=== PATIENT | male | born 1965 | race Caucasian/White ===

== ENCOUNTER 2017-10-27 19:50 | Emergency (ER) | payer OTHER ==
[2017-10-27] MEDS ORDERED: ALBUTEROL 2.5 MG/3 ML NEB SOL ONE (21:41)
[2017-10-27] MEDS ORDERED: IBUPROFEN 400 MG TAB ONE (21:41)
[2017-10-28 00:02] LABS: Urine Blood 1+ (NEG); Urine Glucose NEGATIVE (NEG); Urine Protein NEGATIVE (NEG)
--- NOTE | 2017-10-28 00:37 | EDPHYS ---
Physician Documentation [facility] Name: Rubén Tan Age: 52 yrs Sex: Male : 1965 Arrival Date: 10/27/2017 Time: 19:53 Bed 23 Private MD: Krishan Nath F ED Physician Norbert Lozano HPI: 10/28 00:00 This 52 yrs old Male presents to ER via Wheelchair with complaints of Fever. pm1 00:00 The patient reports fever, not measured (subjective). Onset: The symptoms/episode pm1 began/occurred today. Associated signs and symptoms: Pertinent negatives: abdominal pain, chest pain, headache, runny nose, sore throat. Severity of symptoms: in the emergency department the symptoms are worse. The patient has been recently seen by a physician: the patient's primary care provider, earlier today, with similar presenting complaints. Patient seen by PCP today and discharged home with a dx of allergies. Patient with fever and bodyaches onset today. Patient has been having a cough for 2 days. Historical: - Allergies: 10/27 20:58 Dilaudid; bb 20:58 Morphine; bb - Home Meds: 20:58 None [Active]; bb - PMHx: 20:58 Migraines; bb - PSHx: 20:58 Knee surgery; shoulder; bb - Immunization history:: Adult Immunizations. - Social history:: Smoking status: Patient uses tobacco products, 1 and one/half a day. ROS: 10/28 00:00 Constitutional: Negative for fever, chills, and weight loss, Eyes: Negative for injury, pm1 pain, redness, and discharge, ENT: Negative for injury, pain, and discharge, Neck: Negative for injury, pain, and swelling, Cardiovascular: Negative for chest pain, palpitations, and edema, Abdomen/GI: Negative for abdominal pain, nausea, vomiting, diarrhea, and constipation, Back: Negative for injury and pain, : Negative for injury, bleeding, discharge, and swelling, MS/Extremity: Negative for injury and deformity. Skin: Negative for injury, rash, and discoloration, Neuro: Negative for headache, weakness, numbness, tingling, and seizure. Respiratory: Positive for cough, Negative for shortness of breath, sputum production, wheezing. Exam: 00:00 Constitutional: This is a well developed, well nourished patient who is awake, alert, pm1 and in no acute distress. Head/Face: Normocephalic, atraumatic. Eyes: Pupils equal round and reactive to light, extra-ocular motions intact. Lids and lashes normal. Conjunctiva and sclera are non-icteric and not injected. Cornea within normal limits. Periorbital areas with no swelling, redness, or edema. ENT: Nares patent. No nasal discharge, no septal abnormalities noted. Tympanic membranes are normal and external auditory canals are clear. Oropharynx with no redness, swelling, or masses, exudates, or evidence of obstruction, uvula midline. Mucous membranes moist. Neck: Trachea midline, no thyromegaly or masses palpated, and no cervical lymphadenopathy. Supple, full range of motion without nuchal rigidity, or vertebral point tenderness. No Meningismus. Chest/axilla: Normal chest wall appearance and motion. Nontender with no deformity. No lesions are appreciated. Cardiovascular: Regular rate and rhythm with a normal S1 and S2. No gallops, murmurs, or rubs. Normal PMI, no JVD. No pulse deficits. 00:00 Abdomen/GI: Soft, non-tender, with normal bowel sounds. No distension or tympany. No guarding or rebound. No evidence of tenderness throughout. Back: No spinal tenderness. No costovertebral tenderness. Full range of motion. Skin: Warm, dry with normal turgor. Normal color with no rashes, no lesions, and no evidence of cellulitis. MS/ Extremity: Pulses equal, no cyanosis. Neurovascular intact. Full, normal range of motion. 00:00 Respiratory: the patient does not display signs of respiratory distress, Respirations: normal, Breath sounds: wheezing: that is mild, is heard diffusely. 00:00 Neuro: Orientation: is normal, Motor: is normal, moves all fours, strength is normal, strength is 5/5 in all extremities, Sensation: is normal, no obvious gross deficits. Vital Signs: 10/27 20:58 BP 123 / 68; Pulse 94; Resp 18; Temp 101.2(O); Pulse Ox 99% on R/A; bb 22:40 BP 100 / 65; Pulse 82; Resp 18; Temp 99.8; Pulse Ox 94% on R/A; rk2 23:28 BP 114 / 72; Pulse 80; Resp 17; Pulse Ox 94% on R/A; rk2 10/28 00:39 BP 130 / 83; Pulse 73; Resp 17; Temp 98.8; Pulse Ox 96% on R/A; rk2 MDM: 10/27 21:16 Patient medically screened. pm1 10/28 00:10 Data reviewed: vital signs. Data interpreted: Pulse oximetry: on room air is 99 %. pm1 Interpretation: normal. Counseling: I had a detailed discussion with the patient and/or guardian regarding: the historical points, exam findings, and any diagnostic results supporting the discharge/admit diagnosis, lab results, radiology results, the need for outpatient follow up, to return to the emergency department if symptoms worsen or persist or if there are any questions or concerns that arise at home. 10/27 21:35 Order name: Flu; Complete Time: 22:31 pm1 10/27 23:58 Order name: Urine Dipstick--Ancillary (enter results); Complete Time: 00:03 rg2 10/27 21:35 Order name: Chest Pa And Lat (2 Views) XRAY; Complete Time: 15:06 pm1 Administered Medications: 10/27 21:48 Drug: Ibuprofen 800 mg Route: PO; rk2 10/28 00:38 Follow up: Response: Temperature is decreased 2 10/27 21:48 Drug: Albuterol 2.5 mg Route: Inhalation; rk2 23:00 Follow up: Response: Temperature is decreased rk2 10/28 00:37 Follow up: Response: No adverse reaction rk2 00:53 Drug: predniSONE 60 mg Route: PO; rk2 01:09 Follow up: Response: No adverse reaction rk2 00:54 Drug: Rocephin (cefTRIAXone) 1 grams Route: IM; Site: right deltoid; rk2 01:09 Follow up: Response: No adverse reaction rk2 Disposition: 02:50 Co-signature as Attending Physician, Norbert Lozano MD. Disposition: 10/28/17 00:37 Discharged to Home. Impression: Bronchitis, not specified as acute or chronic. - Condition is Stable. - Discharge Instructions: Acute Bronchitis, Smoking Cessation, Smoking Cessation, Tips For Success. - Prescriptions for Zithromax Z- Cas 250 mg Oral Tablet - take 1 tablet by ORAL route as directed for 5 days Day 1 - take two (2) tablets one time. Day 2, 3, 4 , 5 take one (1) tablet once daily.; 6 tablet. Medrol (Cas) 4 mg Oral Tablets, Dose Pack - take 1 tablet by ORAL route as directed - follow package instructions; 1 packet. Albuterol Sulfate 90 mcg/actuation - inhale 1-2 puff by INHALATION route every 4-6 hours; 1 Inhaler. - Medication Reconciliation Form, Thank You Letter, Antibiotic Education form. - Work release form (10/28/17 01:16). rk2 - Follow up: Emergency Department; When: As needed; Reason: Worsening of condition. Follow up: Krishan Nath MD; When: 2 - 3 days; Reason: Recheck today's complaints, Continuance of care, Re-evaluation by your physician. - Problem is new. - Symptoms have improved. Signatures: Dispatcher [employer] Alisson Morrow, DANI RN bb Cesar Jerome, ESTHELA PILOT FUEL ENGINEER pm1 Norbert Lozano MD MD Raven Patel RN RN rk2
--- NOTE | 2017-10-28 00:37 | ER ---
Nurse's Notes [facility] Name: Rubén Tan Age: 52 yrs Sex: Male : 1965 Arrival Date: 10/27/2017 Time: 19:53 Bed 23 Private MD: Krishan Nath F Diagnosis: Bronchitis, not specified as acute or chronic Presentation: 10/27 20:55 Presenting complaint: spouse states pt was seen by PCP this morning and told he had bb allergies but pt has gotten worse thru the day running fever, cough, congestion, runny nose, flu-like symptoms. Transition of care: patient was not received from another setting of care. Onset of symptoms was October 24, 2017. Initial Sepsis Screen: Does the patient meet any 2 criteria? Temp <36.0*C (96.8*F)) or > 38.3*C (100.4*F). HR > 90 bpm. Does the patient have a suspected source of infection?. Care prior to arrival: None. 20:55 Method Of Arrival: Wheelchair bb 20:55 Acuity: CARINE 3 bb Historical: - Allergies: 20:58 Dilaudid; bb 20:58 Morphine; bb - Home Meds: 20:58 None [Active]; bb - PMHx: 20:58 Migraines; bb - PSHx: 20:58 Knee surgery; shoulder; bb - Immunization history:: Adult Immunizations. - Social history:: Smoking status: Patient uses tobacco products, 1 and one/half a day. Screenin:30 Abuse screen: Denies threats or abuse. rk2 21:30 Nutritional screening: No deficits noted. Tuberculosis screening: No symptoms or risk rk2 factors identified. Fall Risk None identified. Assessment: 21:30 General: Appears Behavior is calm, cooperative. rk2 21:30 Pain: Complains of pain in general body aches. Neuro: Level of Consciousness is awake, rk2 obeys commands, Oriented to person, place, time, situation. Respiratory: Airway is patent Respiratory effort is even, unlabored, Respiratory pattern is regular, symmetrical. Derm: Skin is dry, Skin is flushed, Skin temperature is hot. 22:48 Reassessment: Pt. sleeping in room \T\ this time... family \T\ bedside. No needs voiced. rk 2 10/28 00:00 Reassessment: Pt. sleeping in room, family \T\ bedside... pt. appears to be in no rk2 distress \T\ this time. No needs voiced. Vital Signs: 10/27 20:58 BP 123 / 68; Pulse 94; Resp 18; Temp 101.2(O); Pulse Ox 99% on R/A; bb 22:40 BP 100 / 65; Pulse 82; Resp 18; Temp 99.8; Pulse Ox 94% on R/A; rk2 23:28 BP 114 / 72; Pulse 80; Resp 17; Pulse Ox 94% on R/A; rk2 10/28 00:39 BP 130 / 83; Pulse 73; Resp 17; Temp 98.8; Pulse Ox 96% on R/A; rk2 ED Course: 10/27 19:53 Patient arrived in ED. am2 19:54 Krishan Nath MD is Private Physician. am2 20:58 Triage completed. bb 20:58 Arm band placed on Patient placed in an exam room, on a stretcher, on pulse oximetry. bb Family accompanied patient. 21:03 Raven Patel, DANI is Primary Nurse. rk2 21:09 Cesar Jerome NP is PHCP. pm1 21:09 Norbert Lozano MD is Attending Physician. pm1 21:30 Patient has correct armband on for positive identification. Bed in low position. Call rk2 light in reach. Adult w/ patient. 21:54 Chest Pa And Lat (2 Views) XRAY Sent. rk2 22:33 Patient moved to radiology via wheelchair. ag1 22:33 X-ray completed. Patient tolerated procedure well. ag1 22:33 Patient moved back from radiology. ag1 22:34 Chest Pa And Lat (2 Views) XRAY In Process Unspecified. EDMS 10/28 00:34 Krishan Nath MD is Referral Physician. pm1 01:09 No provider procedures requiring assistance completed. Patient did not have IV access rk2 during this emergency room visit. Administered Medications: 10/27 21:48 Drug: Ibuprofen 800 mg Route: PO; rk2 10/28 00:38 Follow up: Response: Temperature is decreased rk2 10/27 21:48 Drug: Albuterol 2.5 mg Route: Inhalation; rk2 23:00 Follow up: Response: Temperature is decreased rk2 10/28 00:37 Follow up: Response: No adverse reaction rk2 00:53 Drug: predniSONE 60 mg Route: PO; rk2 01:09 Follow up: Response: No adverse reaction rk2 00:54 Drug: Rocephin (cefTRIAXone) 1 grams Route: IM; Site: right deltoid; rk2 01:09 Follow up: Response: No adverse reaction rk2 Outcome: 00:37 Discharge ordered by MD. pm1 01:09 Discharged to home via wheelchair. rk2 01:09 Condition: improved 01:09 Discharge instructions given to patient. 01:10 Patient left the ED. rk2 Signatures: Dispatcher [employer] EDMS Alisson Doll RN RN bb Gallaway, Ashley ag1 Cesar Jerome NP GLOBAL RECRUITER pm1 Julita Hinson am2 Raven Patel RN RN rk2 Corrections: (The following items were deleted from the chart) 10/27 22:52 22:40 BP 100 / 65; Pulse 82bpm; Resp 18bpm; Pulse Ox 94% RA; rk2 rk2
[2017-10-28] MEDS ORDERED: CEFTRIAXONE 1000 MG/VIAL ONE (00:44)
[2017-10-28] MEDS ORDERED: LIDOCAINE 1% MPF 5 ML VIAL ONE (00:44)
[2017-10-28] MEDS ORDERED: predniSONE 20 MG TAB ONE (00:45)
--- NOTE | 2017-10-28 07:50 | RAD REPORT ---
EXAM DESCRIPTION: Anthony Thurston (2 Views)10/27/2017 10:38 pm CLINICAL HISTORY: Cough COMPARISON: November 2016 FINDINGS: The lungs appear clear of acute infiltrate. The heart is normal size IMPRESSION: No acute abnormalities displayed
== END 2017-10-28 01:10 | disposition home or self-care (01) ==
LOC: ER 19:50
DX: J40 Bronchitis, not specified as acute or chronic (principal); Z72.0 Tobacco use; Z88.5 Allergy status to narcotic agent
CPT/HCPCS: 71046; 81003; 87804; 96372; 99284; J7512

== ENCOUNTER 2017-12-20 19:37 | Emergency (ER) | payer OTHER, SELFPAY ==
[2017-12-20] MEDS ORDERED: ONDANSETRON 4 MG/2 ML VIAL ONE (21:12)
[2017-12-20] MEDS ORDERED: NA CHLORIDE 0.9% 1,000 ML ONE (21:12)
[2017-12-20] MEDS ORDERED: MEPERIDINE HCL 50 MG/ML AMP ONE (21:12)
[2017-12-20] MEDS ORDERED: DIPHENHYDRAMINE 50 MG/ML VIAL ONE (21:23)
[2017-12-20 21:49] LABS: Absolute Lymphocytes (CBC) 2.5 K/uL (0.7-4.9); Absolute Monocytes 0.4 K/uL (0.1-1.3); Absolute Neutrophil 2.4 K/uL (1.8-8.0); Basophils % 1.3 % (0-1.3); Eosinophils % 4.7 % (0-4.4); Hematocrit 43.6 % (39.6-49.0); Lymphocytes % 43.9 % (15.3-44.8); MCH 30.8 pg (27.0-35.0); MCV 91.7 fL (80-100); MPV 8.4 fL (7.6-11.3); Monocytes % 7.5 % (3.3-12.3); RBC Red Blood Cell Count 4.76 M/uL (4.33-5.43)
[2017-12-20 21:53] LABS: Protime INR 0.92
[2017-12-20 21:59] LABS: Bicarbonate 24 mEq/L (21-31); Glucose Level 97 mg/dL (65-120); Lipase 34 U/L (22-51); Potassium 3.5 mEq/L (3.6-5.0); Sodium Level 134 mEq/L (135-145)
[2017-12-20 22:05] LABS: ALT/SGPT 22 IU/L (10-60); AST/SGOT 31 IU/L (10-42); Albumin 3.9 g/dL (3.2-5.5); Alkaline Phosphatase 54 IU/L (42-121); BUN Blood Urea Nitrogen 10 mg/dL (6-20); Bilirubin Direct 0.1 mg/dL (0-0.2); Bilirubin Total 0.3 mg/dL (0.3-1.2); Creatine Phosphokinase 248 IU/L (22-269); Magnesium 1.8 mg/dL (1.8-2.5); Protein, Total 6.4 g/dL (6.0-8.3)
[2017-12-20 22:08] LABS: CKMB Creatine Kinase MB 3.1 ng/ml (0.3-4.0)
[2017-12-20 22:13] LABS: Alcohol Serum/Plasma 101 mg/dl
[2017-12-20 22:47] LABS: Barbiturates NEGATIVE (NEGATIVE); Benzodiazepines NEGATIVE (NEGATIVE); Cocaine NEGATIVE (NEGATIVE); METHAMPHETAM NEGATIVE (NEGATIVE); Opiates NEGATIVE (NEGATIVE); Phencyclidine NEGATIVE (NEGATIVE); THC Cannibis NEGATIVE (NEGATIVE)
--- NOTE | 2017-12-20 23:05 | ER ---
Nurse's Notes [facility] Name: Rubén Tan Age: 52 yrs Sex: Male : 1965 Arrival Date: 12/20/2017 Time: 19:42 Bed 13 Private MD: Diagnosis: Upper back pain. Presentation: 12/20 20:01 Presenting complaint: Patient states: upper back and neck pain. pt with chronic back ak1 pain and degenerative bone disease in his back. Transition of care: patient was not received from another setting of care. Onset of symptoms was December 19, 2017. Risk Assessment: Do you want to hurt yourself or someone else? Patient reports no desire to harm self or others. Initial Sepsis Screen: Does the patient meet any 2 criteria? No. Patient's initial sepsis screen is negative. Does the patient have a suspected source of infection? No. Patient's initial sepsis screen is negative. Care prior to arrival: None. 20:01 Method Of Arrival: Wheelchair ak1 20:01 Acuity: CARINE 4 ak1 Triage Assessment: 20:03 General: Appears uncomfortable, Behavior is calm, cooperative. Pain: Complains of pain ak1 in back, neck. EENT: No signs and/or symptoms were reported regarding the EENT system. Neuro: No deficits noted. Cardiovascular: No deficits noted. Respiratory: No deficits noted. GI: No signs and/or symptoms were reported involving the gastrointestinal system. : No signs and/or symptoms were reported regarding the genitourinary system. Derm: No signs and/or symptoms reported regarding the dermatologic system. Musculoskeletal: Range of motion: limited in neck and back Reports pain in neck and back since yesterday morning.. 20:04 General: Smells of alcohol. ak1 Historical: - Allergies: 20:03 Dilaudid; ak1 20:03 Morphine; ak1 - Home Meds: 20:03 None [Active]; ak1 - PMHx: 20:03 Migraines; chronic back pain; Degenerative disc disease; ak1 - PSHx: 20:03 left shoulder sx; right knee sx; multiple pain injections in upper back; ak1 - Immunization history:: Adult Immunizations unknown. - Social history:: Smoking status: Patient uses tobacco products, smokes two packs cigarettes per day. Patient uses alcohol. - Ebola Screening: : No symptoms or risks identified at this time. Screenin:03 Abuse screen: Denies threats or abuse. Denies injuries from another. Nutritional bs1 screening: No deficits noted. Tuberculosis screening: No symptoms or risk factors identified. Fall Risk None identified. Assessment: 20:50 General: Appears in no apparent distress. uncomfortable, Behavior is cooperative, bs1 anxious. Pain: Complains of pain in upper/lower back, in between shoulder blades. Neuro: Level of Consciousness is awake, alert, obeys commands, Oriented to person, place, time, situation. Cardiovascular: Denies chest pain, shortness of breath, Heart tones S1 S2 present Capillary refill < 3 seconds Patient's skin is warm and dry. Respiratory: Airway is patent Trachea midline Respiratory effort is even, unlabored, Breath sounds are clear bilaterally. GI: No signs and/or symptoms were reported involving the gastrointestinal system. : No signs and/or symptoms were reported regarding the genitourinary system. EENT: No signs and/or symptoms were reported regarding the EENT system. Derm: Skin is intact, Skin is pink, warm \T\ dry. Musculoskeletal: Circulation, motion, and sensation intact. Capillary refill < 3 seconds. 21:18 Reassessment: Patient began having c/o itching to right upper arm and chest, informed bs1 Dr Bhatia, nurse diluted demerol in 10cc NS flush, gave half, approximately 25mg demerol administered. gave verbal order to give 25mg benadryl IV x1. 22:45 Reassessment: Patient appears in no apparent distress at this time. Patient and/or bs1 family updated on plan of care and expected duration. Pain level reassessed. Patient is alert, oriented x 3, equal unlabored respirations, skin warm/dry/pink. itching has subsided on patients right upper arm and chest. 23:15 Reassessment: Patient appears in no apparent distress at this time. No changes from bs1 previously documented assessment. Patient and/or family updated on plan of care and expected duration. Pain level reassessed. Patient is alert, oriented x 3, equal unlabored respirations, skin warm/dry/pink. Patient states symptoms have improved. Vital Signs: 20:03 BP 103 / 70; Pulse 80; Resp 18; Temp 98.1(TE); Pulse Ox 96% on R/A; Weight 90.72 kg ak1 (R); Height 5 ft. 9 in. (175.26 cm) (R); Pain 10/10; 21:06 BP 105 / 73; Pulse 69; Resp 16 S; Pulse Ox 97% on R/A; bs1 22:06 BP 95 / 67; Pulse 74; Resp 16; Pulse Ox 97% on R/A; mt 23:06 BP 114 / 74 LA Sitting (auto/reg); Pulse 76; Resp 16 S; Temp 98(O); Pulse Ox 100% on bs1 R/A; Pain 4/10; 20:03 Body Mass Index 29.53 (90.72 kg, 175.26 cm) ak1 ED Course: 19:42 Patient arrived in ED. al2 20:02 Triage completed. ak1 20:03 Arm band placed on Patient placed in waiting room, Patient notified of wait time. ak1 20:46 Paul Bhatia MD is Attending Physician. pkl 20:50 Dolly Curran, DANI is Primary Nurse. bs1 21:41 X-ray completed. Portable x-ray completed in exam room. Patient tolerated procedure kc2 well. 21:42 XRAY Chest (1 view) In Process Unspecified. EDMS 23:04 Patient has correct armband on for positive identification. Bed in low position. Call bs1 light in reach. Side rails up X 1. gambling monitor on. Pulse ox on. NIBP on. 23:22 No provider procedures requiring assistance completed. IV discontinued, bleeding bs1 controlled, No redness/swelling at site. Pressure dressing applied. Administered Medications: 21:10 Drug: NS 0.9% 1000 ml Route: IV; Rate: 125 ml/hr; Site: right antecubital; bs1 23:26 Follow up: IV Status: Order to discontinue infusion; IV Intake: 250ml bs1 21:10 Drug: Demerol 50 mg Route: IVP; Site: right antecubital; bs1 23:26 Follow up: Response: Adverse reaction, Physician notified bs1 21:10 Drug: Zofran 4 mg Route: IVP; Site: right antecubital; bs1 23:26 Follow up: Response: No adverse reaction bs1 21:22 Drug: Benadryl 25 mg Route: IVP; Site: right antecubital; bs1 23:26 Follow up: Response: No adverse reaction bs1 Intake: 23:26 IV: 250ml; Total: 250ml. bs1 Outcome: 23:05 Discharge ordered by . pklew 23:25 Discharged to home ambulatory. bs1 23:25 Condition: stable 23:25 Discharge instructions given to patient, Instructed on discharge instructions, follow up and referral plans. medication usage, Demonstrated understanding of instructions, follow-up care, medications, Prescriptions given X 2. 23:30 Patient left the ED. bs1 Signatures: Dispatcher [employer] EDMS Paul Bhatia MD MD pkl Krenek, Amber, RN RN ak1 Ericka Doll2 Sara Augustine mt, Brittany RN RN bs1 Susan, Alicja rockwell Corrections: (The following items were deleted from the chart) 23:29 22:45 Reassessment: Patient appears in no apparent distress at this time. Patient bs1 and/or family updated on plan of care and expected duration. Pain level reassessed. Patient is alert, oriented x 3, equal unlabored respirations, skin warm/dry/pink. bs1
--- NOTE | 2017-12-20 23:05 | EDPHYS ---
Physician Documentation [facility] Name: Rubén Tan Age: 52 yrs Sex: Male : 1965 Arrival Date: 12/20/2017 Time: 19:42 Bed 13 Private MD: ED Physician Paul Bhatia HPI: 12/20 21:01 This 52 yrs old Male presents to ER via Wheelchair with complaints of Back pkl Pain. 21:01 The patient presents with pain that is acute. The symptoms are located in the upper pkl back. Onset: The symptoms/episode began/occurred today. The pain radiates to the neck and head. Historical: - Allergies: 20:03 Dilaudid; ak1 20:03 Morphine; ak1 - Home Meds: 20:03 None [Active]; ak1 - PMHx: 20:03 Migraines; chronic back pain; Degenerative disc disease; ak1 - PSHx: 20:03 left shoulder sx; right knee sx; multiple pain injections in upper back; ak1 - Immunization history:: Adult Immunizations unknown. - Social history:: Smoking status: Patient uses tobacco products, smokes two packs cigarettes per day. Patient uses alcohol. - Ebola Screening: : No symptoms or risks identified at this time. ROS: 21:01 Eyes: Negative for injury, pain, redness, and discharge, ENT: Negative for injury, pkl pain, and discharge, Neck: Negative for injury, pain, and swelling, Cardiovascular: Negative for chest pain, palpitations, and edema, Respiratory: Negative for shortness of breath, cough, wheezing, and pleuritic chest pain, Abdomen/GI: Negative for abdominal pain, nausea, vomiting, diarrhea, and constipation. 21:01 Back: Positive for pain at rest, of the upper back. 21:01 : Negative for urinary symptoms. 21:01 MS/extremity: Negative for acute changes. 21:01 Skin: Negative for rash. 21:01 Neuro: Positive for headache. Exam: 21:01 Head/Face: Normocephalic, atraumatic. Eyes: Pupils equal round and reactive to light, pkl extra-ocular motions intact. Lids and lashes normal. Conjunctiva and sclera are non-icteric and not injected. Cornea within normal limits. Periorbital areas with no swelling, redness, or edema. ENT: Nares patent. No nasal discharge, no septal abnormalities noted. Tympanic membranes are normal and external auditory canals are clear. Oropharynx with no redness, swelling, or masses, exudates, or evidence of obstruction, uvula midline. Mucous membranes moist. Neck: Trachea midline, no thyromegaly or masses palpated, and no cervical lymphadenopathy. Supple, full range of motion without nuchal rigidity, or vertebral point tenderness. No Meningismus. Chest/axilla: Normal chest wall appearance and motion. Nontender with no deformity. No lesions are appreciated. Cardiovascular: Regular rate and rhythm with a normal S1 and S2. No gallops, murmurs, or rubs. Normal PMI, no JVD. No pulse deficits. Respiratory: Lungs have equal breath sounds bilaterally, clear to auscultation and percussion. No rales, rhonchi or wheezes noted. No increased work of breathing, no retractions or nasal flaring. Abdomen/GI: Soft, non-tender, with normal bowel sounds. No distension or tympany. No guarding or rebound. No evidence of tenderness throughout. Back: No spinal tenderness. No costovertebral tenderness. Full range of motion. Skin: Warm, dry with normal turgor. Normal color with no rashes, no lesions, and no evidence of cellulitis. MS/ Extremity: Pulses equal, no cyanosis. Neurovascular intact. Full, normal range of motion. Neuro: Awake and alert, GCS 15, oriented to person, place, time, and situation. Cranial nerves II-XII grossly intact. Motor strength 5/5 in all extremities. Sensory grossly intact. Cerebellar exam normal. Normal gait. Vital Signs: 20:03 BP 103 / 70; Pulse 80; Resp 18; Temp 98.1(TE); Pulse Ox 96% on R/A; Weight 90.72 kg ak1 (R); Height 5 ft. 9 in. (175.26 cm) (R); Pain 10/10; 21:06 BP 105 / 73; Pulse 69; Resp 16 S; Pulse Ox 97% on R/A; bs1 22:06 BP 95 / 67; Pulse 74; Resp 16; Pulse Ox 97% on R/A; mt 23:06 BP 114 / 74 LA Sitting (auto/reg); Pulse 76; Resp 16 S; Temp 98(O); Pulse Ox 100% on bs1 R/A; Pain 4/10; 20:03 Body Mass Index 29.53 (90.72 kg, 175.26 cm) ak1 MDM: 20:46 Patient medically screened. pkl 23:04 Data reviewed: vital signs, nurses notes, lab test result(s), EKG, radiologic studies, pkl plain films. 12/20 20:59 Order name: Basic Metabolic Panel; Complete Time: 23:00 pkl 12/20 20:59 Order name: BNP; Complete Time: 23:00 pkl 12/20 20:59 Order name: CBC with Diff; Complete Time: 23:00 pkl 12/20 20:59 Order name: Ckmb; Complete Time: 23:00 pk 12/20 20:59 Order name: CPK; Complete Time: 23:00 pk 12/20 20:59 Order name: LFT's; Complete Time: 23:00 pkl 12/20 20:59 Order name: Magnesium; Complete Time: 23:00 pk 12/20 20:59 Order name: PT-INR; Complete Time: 23:00 pk 12/20 20:59 Order name: Ptt, Activated; Complete Time: 23:00 pkl 12/20 20:59 Order name: Troponin (emerg Dept Use Only); Complete Time: 23:00 pk 12/20 20:59 Order name: D-Dimer; Complete Time: 23:00 pkl 12/20 20:59 Order name: ETOH Level; Complete Time: 23:00 pkl 12/20 20:59 Order name: Lipase; Complete Time: 23:00 pk 12/20 20:59 Order name: UDS pk 12/20 20:59 Order name: XRAY Chest (1 view) pk 12/20 20:59 Order name: EKG; Complete Time: 21:00 pk 12/20 20:59 Order name: Cardiac monitoring; Complete Time: 22:23 pk 12/20 20:59 Order name: EKG - Nurse/Tech; Complete Time: 22:23 pk 12/20 20:59 Order name: IV Saline Lock; Complete Time: 21:52 pkl 12/20 20:59 Order name: Labs collected and sent; Complete Time: 21:52 pk 12/20 20:59 Order name: O2 Per Protocol; Complete Time: 21:52 pk 12/20 20:59 Order name: O2 Sat Monitoring; Complete Time: 21:52 pkl 12/20 20:59 Order name: Urine Dipstick-Ancillary (obtain specimen); Complete Time: 22:23 pk 12/20 22:23 Order name: Urine Dipstick--Ancillary (enter results) ms Administered Medications: 21:10 Drug: NS 0.9% 1000 ml Route: IV; Rate: 125 ml/hr; Site: right antecubital; bs1 23:26 Follow up: IV Status: Order to discontinue infusion; IV Intake: 250ml bs1 21:10 Drug: Demerol 50 mg Route: IVP; Site: right antecubital; bs1 23:26 Follow up: Response: Adverse reaction, Physician notified bs1 21:10 Drug: Zofran 4 mg Route: IVP; Site: right antecubital; bs1 23:26 Follow up: Response: No adverse reaction bs1 21:22 Drug: Benadryl 25 mg Route: IVP; Site: right antecubital; bs1 23:26 Follow up: Response: No adverse reaction bs1 Disposition: 12/20/17 23:05 Discharged to Home. Impression: Upper back pain. . - Condition is Stable. - Prescriptions for Ultram 50 mg Oral Tablet - take 1 tablet by ORAL route every 8 hours As needed; 30 tablet. Cyclobenzaprine 10 mg Oral Tablet - take 1 tablet by ORAL route 2 times per day As needed; 20 tablet. - Medication Reconciliation Form, Thank You Letter, Antibiotic Education, Prescription Opioid Use form. - Follow up: Private Physician; When: 2 - 3 days; Reason: Re-evaluation by your physician. - Problem is new. - Symptoms have improved. Signatures: Dispatcher [employer] EDMS Paul Bhatia MD MD pkDeisi Shannon RN RN ak1 Dolly Curran RN RN bs1 Corrections: (The following items were deleted from the chart) 23:30 23:05 12/20/2017 23:05 Discharged to Home. Impression: Upper back pain. . Condition is bs1 Stable. Forms are Medication Reconciliation Form, Thank You Letter, Antibiotic Education, Prescription Opioid Use. Follow up: Private Physician; When: 2 - 3 days; Reason: Re-evaluation by your physician. Problem is new. Symptoms have improved. pkl
[2017-12-21 00:08] LABS: Urine Blood NEGATIVE (NEG); Urine Glucose NEGATIVE (NEG); Urine Protein NEGATIVE (NEG); Urine Specific Gravity <1.005 (1.005-1.030); Urine pH 5.5 (5.0-7.0)
--- NOTE | 2017-12-21 05:34 | EKG ---
Test Date: 2017-12-20 Test Time: 21:51:14 [employer]: MARGARETH MEASUREMENT RESULTS: Intervals: Rate: 67 MT: 150 QRSD: 110 QT: 426 QTc: 450 [place]: P: 67 MT: 150 QRS: 73 T: 59 INTERPRETIVE STATEMENTS: Normal sinus rhythm Normal ECG Compared to ECG 12/01/2016 07:13:52 No significant changes Electronically Signed On 12-21-17 05:33:08 CDT by Guido Esqueda
--- NOTE | 2017-12-21 08:17 | RAD REPORT ---
EXAM DESCRIPTION: Anthony Single View12/20/2017 9:42 pm CLINICAL HISTORY: Chest pain COMPARISON: October 2017 FINDINGS: The lungs appear clear of acute infiltrate. The heart is normal size. Old rib fractures n oted. IMPRESSION: No acute abnormalities displayed
== END 2017-12-20 23:30 | disposition home or self-care (01) ==
LOC: ER 19:37
DX: M54.6 Pain in thoracic spine (principal); F17.210 Nicotine dependence, cigarettes, uncomplicated; Z88.5 Allergy status to narcotic agent; Z88.6 Allergy status to analgesic agent
CPT/HCPCS: 36415; 71045; 80048; 80076; 80307; 80320; 81003; 82550; 82553; 83690; 83735; 83880; 84484; 85025; 85379; 85610; 85730; 93005; 96361; 96374; 96375; 99284; J2175; J2405; J7030

== ENCOUNTER 2018-11-30 19:22 | Emergency (ER) | payer SELFPAY ==
[2018-11-30 19:55] LABS: Absolute Lymphocytes (CBC) 2.8 K/uL (0.7-4.9); Absolute Monocytes 0.5 K/uL (0.1-1.3); Absolute Neutrophil 2.8 K/uL (1.8-8.0); Basophils % 1.5 % (0-1.3); Eosinophils % 4.2 % (0-4.4); Hematocrit 47.4 % (39.6-49.0); Lymphocytes % 43.1 % (15.3-44.8); MPV 8.7 fL (7.6-11.3); Monocytes % 7.6 % (3.3-12.3); RBC Red Blood Cell Count 5.08 M/uL (4.33-5.43)
[2018-11-30 19:59] LABS: Protime INR 0.91
[2018-11-30 20:18] LABS: ALT/SGPT 34 U/L (12-78); AST/SGOT 31 U/L (15-37); Albumin 3.9 g/dL (3.4-5.0); Alkaline Phosphatase 74 U/L (45-117); BUN Blood Urea Nitrogen 12 mg/dL (7-18); Bicarbonate 23 mmol/L (21-32); Bilirubin Direct < 0.1 mg/dL (0-0.2); Bilirubin Total 0.2 mg/dL (0.2-1.0); Glucose Level 100 mg/dL (74-106); Magnesium 2.1 mg/dL (1.8-2.4); NT PRO-BNP 21 pg/mL (<125); Potassium 4.1 mmol/L (3.5-5.1); Protein, Total 7.1 g/dL (6.4-8.2); Sodium Level 141 mmol/L (136-145); Troponin (Emerg Dept Use Only) < 0.02 ng/mL (0.0-0.045)
--- NOTE | 2018-11-30 20:22 | RAD REPORT ---
EXAM DESCRIPTION: RAD - Chest Single View - 11/30/2018 8:16 pm CLINICAL HISTORY: CHEST PAIN Chest pain. COMPARISON: Chest Single View dated 12/20/2017; Chest Pa And Lat (2 Views) dated 10/27/2017; Chest Sin gle View dated 11/30/2016; Chest Single View dated 10/14/2016 FINDINGS: Portable technique limits examination quality. The lungs are grossly clear. The heart is normal in size. No displaced fractures. IMPRESSION: No acute intrathoracic process suspected.
[2018-11-30] MEDS ORDERED: FENTANYL CITR 100 MCG/2 ML ONE (20:39)
[2018-11-30] MEDS ORDERED: ONDANSETRON 4 MG/2 ML VIAL ONE (20:39)
[2018-11-30] MEDS ORDERED: KETOROLAC 30 MG/ML INJ ONE (20:39)
--- NOTE | 2018-11-30 21:03 | ER ---
Nurse's Notes [facility] Name: Rubén Tan Age: 53 yrs Sex: Male : 1965 Arrival Date: 11/30/2018 Time: 19:23 Bed 28 Private MD: Diagnosis: Chest pain, unspecified;Nonspecific lymphadenitis Presentation: 11/30 19:33 Presenting complaint: Patient states: 2 weeks ago he noticed a lump on the side of his aj1 neck and he started having some chest pain. Yesterday the chest pain was worse and then today it was even worse. Reports left upper chest pain that radiates down the left arm. Reports that he has had a cough in the morning for the past month after having a cold, but he does not feel like this is contributing to his pain. Reports that the pain is worse with movement. Transition of care: patient was not received from another setting of care. Onset of symptoms was November 2018. Risk Assessment: Do you want to hurt yourself or someone else? Patient reports no desire to harm self or others. Initial Sepsis Screen: Does the patient meet any 2 criteria? No. Patient's initial sepsis screen is negative. Does the patient have a suspected source of infection? No. Patient's initial sepsis screen is negative. Care prior to arrival: None. 19:33 Method Of Arrival: Wheelchair aj1 19:33 Acuity: CARINE 3 aj1 Triage Assessment: 19:36 General: Appears uncomfortable, Behavior is anxious, restless. Pain: Complains of pain aj1 in anterior aspect of left upper chest Pain radiates to left arm Pain currently is 10 out of 10 on a pain scale. Neuro: Level of Consciousness is awake, alert, obeys commands. Cardiovascular: Patient's skin is warm and dry. Respiratory: Airway is patent Respiratory effort is even, unlabored, Respiratory pattern is regular, symmetrical. Historical: - Allergies: 19:36 Dilaudid; aj1 19:36 Morphine; aj1 - Home Meds: 19:36 None [Active]; aj1 - PMHx: 19:36 chronic back pain; Degenerative disc disease; Migraines; aj1 - PSHx: 19:36 shoulder surgery; back surgery; aj1 - Immunization history:: Flu vaccine is up to date. - Social history:: Smoking status: Patient uses tobacco products, smokes one pack cigarettes per day. - Ebola Screening: : Patient denies travel to an Ebola-affected area in the 21 days before illness onset. Screenin:41 Abuse screen: Denies threats or abuse. Denies injuries from another. Nutritional mg2 screening: No deficits noted. Tuberculosis screening: No symptoms or risk factors identified. Fall Risk Assessment: 19:42 General: Appears in no apparent distress. comfortable, Behavior is calm, cooperative. mg2 Pain: Complains of pain in chest Pain radiates to left arm. Pain: Pain currently is 4 out of 10 on a pain scale. Quality of pain is described as aching, Pain began gradually, 2 weeks ago but worse yesterday Is intermittent. Neuro: Level of Consciousness is awake, alert, obeys commands, Oriented to person, place, time, situation. Cardiovascular: Capillary refill < 3 seconds Patient's skin is warm and dry. Respiratory: Airway is patent Respiratory effort is even, unlabored, Respiratory pattern is regular, symmetrical. Respiratory: Reports cough that is non-productive. GI: No signs and/or symptoms were reported involving the gastrointestinal system. : No signs and/or symptoms were reported regarding the genitourinary system. EENT: No signs and/or symptoms were reported regarding the EENT system. Derm: Skin is intact, is healthy with good turgor, Skin is pink, warm \T\ dry. normal. Musculoskeletal: Circulation, motion, and sensation intact. Capillary refill < 3 seconds. 21:41 Reassessment: Patient appears in no apparent distress at this time. Patient and/or mg2 family updated on plan of care and expected duration. Pain level reassessed. Patient is alert, oriented x 3, equal unlabored respirations, skin warm/dry/pink. Patient states feeling better. Patient states symptoms have improved. Vital Signs: 19:36 BP 117 / 76; Pulse 83; Resp 18; Pulse Ox 95% on R/A; Weight 95.25 kg (R); Height 5 ft. aj1 9 in. (175.26 cm) (R); Pain 10/10; 20:38 Pulse 75; Resp 18; Temp 98; Pulse Ox 100% on R/A; mg2 21:41 BP 104 / 62; Pulse 72; Resp 18; Temp 98; Pulse Ox 100% on R/A; Pain 2/10; mg2 19:36 Body Mass Index 31.01 (95.25 kg, 175.26 cm) aj1 ED Course: 19:23 Patient arrived in ED. es 19:25 Steven Murphy RN is Primary Nurse. mg2 19:32 Cesar Jerome NP is PHCP. pm1 19:32 Norbert Lozano MD is Attending Physician. pm1 19:35 Triage completed. aj1 19:35 No provider procedures requiring assistance completed. Inserted saline lock: 20 gauge mg2 in left antecubital area, using aseptic technique. Blood collected. 19:36 Arm band placed on Patient Patient triaged in ER bed 28. aj1 19:45 Patient has correct armband on for positive identification. surveillance system monitor on. Pulse mg2 ox on. NIBP on. Door closed. Warm blanket given. 20:16 XRAY Chest (1 view) In Process Unspecified. EDMS 20:37 Patient maintains SpO2 saturation greater than 95% on room air. mg2 21:41 IV discontinued, intact, bleeding controlled, No redness/swelling at site. Pressure mg2 dressing applied. Administered Medications: 20:33 Drug: fentaNYL (PF) 50 mcg Route: IVP; Site: left antecubital; mg2 21:08 Follow up: Response: No adverse reaction; Marked relief of symptoms mg2 20:33 Drug: Zofran 4 mg Route: IVP; Site: left antecubital; mg2 21:08 Follow up: Response: No adverse reaction; Marked relief of symptoms mg2 20:33 Drug: TORadol 30 mg Route: IVP; Site: left antecubital; mg2 21:08 Follow up: Response: No adverse reaction; Marked relief of symptoms mg2 21:07 Drug: Valium 5 mg Route: IVP; Site: left antecubital; mg2 21:41 Follow up: Response: No adverse reaction; Marked relief of symptoms mg2 Outcome: 21:02 Discharge ordered by . pm1 21:42 Discharged to home via wheelchair, with family. mg2 21:42 Condition: stable 21:42 Discharge instructions given to patient, family, Instructed on discharge instructions, follow up and referral plans. medication usage, Demonstrated understanding of instructions, follow-up care, medications, Prescriptions given X 3. 21:42 Patient left the ED. mg2 Signatures: Dispatcher [employer] EDMS Anita Samuel RN RN aj1 Fara Lamb Patrick, NP [employer] pm1 Steven Murphy, RN RN mg2
--- NOTE | 2018-11-30 21:04 | EDPHYS ---
Physician Documentation [facility] Name: Rubén Tan Age: 53 yrs Sex: Male : 1965 Arrival Date: 11/30/2018 Time: 19:23 Bed 28 Private MD: ED Physician Norbert Lozano HPI: 11/30 19:45 This 53 yrs old Male presents to ER via Wheelchair with complaints of Chest pm1 Pain. 20:57 The patient or guardian reports chest pain that is located primarily in the anterior pm1 aspect of left upper chest. 20:57 Onset: 2 week(s) ago. Associated signs and symptoms: Pertinent positives: cough, pm1 Pertinent negatives: diaphoresis, dizziness, headache, nausea, shortness of breath. The chest pain is described as sharp. Duration: The patient or guardian reports multiple episodes, current episode of chest pain present since last night. Modifying factors: the symptoms are aggravated by deep breath, palpation of area, Moving left arm. Severity of pain: in the emergency department the pain is actually worse. The patient has not recently seen a physician. Historical: - Allergies: 19:36 Dilaudid; aj1 19:36 Morphine; aj1 - Home Meds: 19:36 None [Active]; aj1 - PMHx: 19:36 chronic back pain; Degenerative disc disease; Migraines; aj1 - PSHx: 19:36 shoulder surgery; back surgery; aj1 - Immunization history:: Flu vaccine is up to date. - Social history:: Smoking status: Patient uses tobacco products, smokes one pack cigarettes per day. - Ebola Screening: : Patient denies travel to an Ebola-affected area in the 21 days before illness onset. ROS: 20:57 Constitutional: Negative for fever, chills, and weight loss, Eyes: Negative for injury, pm1 pain, redness, and discharge, ENT: Negative for injury, pain, and discharge. 20:57 Respiratory: Negative for shortness of breath, cough, wheezing, and pleuritic chest pain. 20:57 Abdomen/GI: Negative for abdominal pain, nausea, vomiting, diarrhea, and constipation, Back: Negative for injury and pain, : Negative for injury, bleeding, discharge, and swelling, MS/Extremity: Negative for injury and deformity, Skin: Negative for injury, rash, and discoloration, Neuro: Negative for headache, weakness, numbness, tingling, and seizure. 20:57 Neck: Positive for swollen nodes, of the left lateral aspect of neck. 20:57 Cardiovascular: Positive for chest pain, Negative for edema, orthopnea, palpitations. Exam: 20:57 Constitutional: This is a well developed, well nourished patient who is awake, alert, pm1 and in no acute distress. Head/Face: Normocephalic, atraumatic. Eyes: Pupils equal round and reactive to light, extra-ocular motions intact. Lids and lashes normal. Conjunctiva and sclera are non-icteric and not injected. Cornea within normal limits. Periorbital areas with no swelling, redness, or edema. ENT: Nares patent. No nasal discharge, no septal abnormalities noted. Tympanic membranes are normal and external auditory canals are clear. Oropharynx with no redness, swelling, or masses, exudates, or evidence of obstruction, uvula midline. Mucous membranes moist. Cardiovascular: Regular rate and rhythm with a normal S1 and S2. No gallops, murmurs, or rubs. Normal PMI, no JVD. No pulse deficits. Respiratory: Lungs have equal breath sounds bilaterally, clear to auscultation and percussion. No rales, rhonchi or wheezes noted. No increased work of breathing, no retractions or nasal flaring. 20:57 Abdomen/GI: Soft, non-tender, with normal bowel sounds. No distension or tympany. No guarding or rebound. No evidence of tenderness throughout. Back: No spinal tenderness. No costovertebral tenderness. Full range of motion. Skin: Warm, dry with normal turgor. Normal color with no rashes, no lesions, and no evidence of cellulitis. MS/ Extremity: Pulses equal, no cyanosis. Neurovascular intact. Full, normal range of motion. 20:57 Neck: Lymph nodes: lymphadenopathy is appreciated, anterior cervical nodes. 20:57 Chest/axilla: Inspection: normal, Palpation: tenderness, of the anterior aspect of left upper chest, that totally reproduces the patient's complaints. 20:57 Neuro: Orientation: is normal, Motor: is normal, moves all fours, Sensation: is normal, no obvious gross deficits, Gait: is steady, at a normal pace, without difficulty. Vital Signs: 19:36 BP 117 / 76; Pulse 83; Resp 18; Pulse Ox 95% on R/A; Weight 95.25 kg (R); Height 5 ft. aj1 9 in. (175.26 cm) (R); Pain 10/10; 20:38 Pulse 75; Resp 18; Temp 98; Pulse Ox 100% on R/A; mg2 21:41 BP 104 / 62; Pulse 72; Resp 18; Temp 98; Pulse Ox 100% on R/A; Pain 2/10; mg2 19:36 Body Mass Index 31.01 (95.25 kg, 175.26 cm) aj1 MDM: 19:33 Patient medically screened. pm1 20:56 Data reviewed: vital signs. Data interpreted: Pulse oximetry: on room air is 100 %. pm1 Interpretation: normal. Counseling: I had a detailed discussion with the patient and/or guardian regarding: the historical points, exam findings, and any diagnostic results supporting the discharge/admit diagnosis, lab results, radiology results, the need for outpatient follow up, to return to the emergency department if symptoms worsen or persist or if there are any questions or concerns that arise at home. 11/30 19:32 Order name: Basic Metabolic Panel mg2 11/30 19:32 Order name: CBC with Diff mg2 11/30 19:32 Order name: LFT's; Complete Time: 20:19 mg2 11/30 19:32 Order name: Magnesium; Complete Time: 20:19 mg2 11/30 19:32 Order name: NT PRO-BNP; Complete Time: 20:19 mg2 11/30 19:32 Order name: PT-INR; Complete Time: 20:12 mg2 11/30 19:32 Order name: Troponin (emerg Dept Use Only); Complete Time: 20:19 mg2 11/30 19:32 Order name: XRAY Chest (1 view); Complete Time: 20:47 mg2 11/30 19:33 Order name: Basic Metabolic Panel; Complete Time: 20:19 EDMS 11/30 19:33 Order name: CBC with Automated Diff; Complete Time: 20:12 EDMS 11/30 19:45 Order name: Flu; Complete Time: 20:18 mg2 11/30 19:32 Order name: EKG; Complete Time: 19:34 mg2 11/30 19:32 Order name: Cardiac monitoring; Complete Time: 19:40 mg2 11/30 19:32 Order name: EKG - Nurse/Tech; Complete Time: 19:34 mg2 11/30 19:32 Order name: IV Saline Lock; Complete Time: :34 mg2 11/30 19:32 Order name: Labs collected and sent; Complete Time: :34 mg2 11/30 19:32 Order name: O2 Per Protocol; Complete Time: :34 mg2 11/30 19:32 Order name: O2 Sat Monitoring; Complete Time: :34 mg2 EC:11 Rate is 86 beats/min. Rhythm is regular. QRS Snow is Normal. No ST changes noted. pm1 Clinical impression: Normal ECG. Administered Medications: 20:33 Drug: fentaNYL (PF) 50 mcg Route: IVP; Site: left antecubital; mg2 21:08 Follow up: Response: No adverse reaction; Marked relief of symptoms mg2 20:33 Drug: Zofran 4 mg Route: IVP; Site: left antecubital; mg2 21:08 Follow up: Response: No adverse reaction; Marked relief of symptoms mg2 20:33 Drug: TORadol 30 mg Route: IVP; Site: left antecubital; mg2 21:08 Follow up: Response: No adverse reaction; Marked relief of symptoms mg2 21:07 Drug: Valium 5 mg Route: IVP; Site: left antecubital; mg2 21:41 Follow up: Response: No adverse reaction; Marked relief of symptoms mg2 Disposition: 11/30/18 21:02 Discharged to Home. Impression: Chest pain, unspecified, Nonspecific lymphadenitis. - Condition is Stable. - Discharge Instructions: Nonspecific Chest Pain, Lymphadenopathy. - Prescriptions for Cephalexin 500 mg Oral Capsule - take 1 capsule by ORAL route every 6 hours for 10 days; 40 capsule. Naprosyn 500 mg Oral Tablet - take 1 tablet by ORAL route 2 times per day take with food; 30 tablet. Valium 5 mg Oral Tablet - take 1 tablet by ORAL route every 8 hours As needed; 20 tablet. - Medication Reconciliation Form, Thank You Letter, Antibiotic Education, Prescription Opioid Use form. - Follow up: Emergency Department; When: As needed; Reason: Worsening of condition. Follow up: Private Physician; When: 2 - 3 days; Reason: Recheck today's complaints, Continuance of care, Re-evaluation by your physician. - Problem is new. - Symptoms have improved. Addendum: 12/01/2018 21:59 Co-signature as Attending Physician, Norbert Lozano MD. g s Signatures: Dispatcher [employer] EDAnita Moses RN RN aj1 Cesar Jerome, SPINDLE SETTER SPINDLE SETTER pm1 Norbert Lozano MD MD gs Steven Murphy, DANI RN mg2 Corrections: (The following items were deleted from the chart) 11/30 21:42 21:02 11/30/2018 21:02 Discharged to Home. Impression: Chest pain, unspecified; mg2 Nonspecific lymphadenitis. Condition is Stable. Forms are Medication Reconciliation Form, Thank You Letter, Antibiotic Education, Prescription Opioid Use. Follow up: Emergency Department; When: As needed; Reason: Worsening of condition. Follow up: Private Physician; When: 2 - 3 days; Reason: Recheck today's complaints, Continuance of care, Re-evaluation by your physician. Problem is new. Symptoms have improved. pm1
[2018-11-30] MEDS ORDERED: DIAZEPAM 10 MG/2 ML INJ SYRINGE ONE (21:14)
--- NOTE | 2018-12-01 16:33 | EKG ---
Test Date: 2018-11-30 Test Time: 19:30:03 Casing [employer]er: ASTON MEASUREMENT RESULTS: Intervals: Rate: 86 VT: 138 QRSD: 98 QT: 372 QTc: 445 [place]: P: 63 VT: 138 QRS: 69 T: 59 INTERPRETIVE STATEMENTS: Normal sinus rhythm Normal ECG Compared to ECG 12/20/2017 21:51:14 No significant changes Electronically Signed On 12-01-18 16:31:44 CDT by Cam Daniels
== END 2018-11-30 21:42 | disposition home or self-care (01) ==
LOC: ER 19:22
DX: R07.9 Chest pain, unspecified (principal); I88.9 Nonspecific lymphadenitis, unspecified; F17.210 Nicotine dependence, cigarettes, uncomplicated; Z88.6 Allergy status to analgesic agent
CPT/HCPCS: 36415; 71045; 80048; 80076; 83735; 83880; 84484; 85025; 85610; 87804; 93005; 96374; 96375; 99285; J2405; J3010; J3360

== ENCOUNTER 2019-02-21 20:46 | Emergency (ER) | payer SELFPAY ==
[2019-02-21] MEDS ORDERED: KETOROLAC 30 MG/ML INJ ONE (21:37)
[2019-02-21 21:49] LABS: Absolute Lymphocytes (CBC) 2.4 K/uL (0.7-4.9); Basophils % 1.5 % (0-1.3); Hematocrit 44.1 % (39.6-49.0); Lymphocytes % 41.3 % (15.3-44.8); MPV 8.7 fL (7.6-11.3); RBC Red Blood Cell Count 4.78 M/uL (4.33-5.43)
--- NOTE | 2019-02-21 23:14 | ER ---
Nurse's Notes [facility] Name: Rubén Tan Age: 53 yrs Sex: Male : 1965 Arrival Date: 02/21/2019 Time: 20:47 Bed 26 Private MD: Diagnosis: Contusion of abdominal wall Presentation: 02/21 21:07 Presenting complaint: Patient states: "I am having worsening abdominal pain. 2 weeks jd3 ago I hit myself in the stomach with a pipe and it bruised, swelled up, and hurt. the bruise went away, but the swelling is still there along with the pain.". Transition of care: patient was not received from another setting of care. Onset of symptoms was February 09, 2019. Risk Assessment: Do you want to hurt yourself or someone else? Patient reports no desire to harm self or others. Initial Sepsis Screen: Does the patient meet any 2 criteria? No. Patient's initial sepsis screen is negative. Does the patient have a suspected source of infection? No. Patient's initial sepsis screen is negative. Care prior to arrival: None. 21:07 Method Of Arrival: Ambulatory jd3 21:07 Acuity: CARINE 3 jd3 Historical: - Allergies: 21:11 Dilaudid; jd3 21:11 Morphine; jd3 - Home Meds: 21:11 None [Active]; jd3 - PMHx: 21:11 chronic back pain; Degenerative disc disease; Migraines; jd3 - PSHx: 21:11 shoulder surgery; back surgery; right; jd3 - Immunization history:: Adult Immunizations up to date. - Social history:: Smoking status: Patient uses tobacco products, smokes one pack cigarettes per day. - Ebola Screening: : Patient negative for fever greater than or equal to 101.5 degrees Fahrenheit, and additional compatible Ebola Virus Disease symptoms. Screenin:44 Abuse screen: Denies threats or abuse. Denies injuries from another. Nutritional rv screening: No deficits noted. Tuberculosis screening: No symptoms or risk factors identified. Fall Risk None identified. Assessment: 21:42 General: Appears in no apparent distress. uncomfortable, Behavior is calm, cooperative. rv Pain: Complains of pain in abdomen. Neuro: Level of Consciousness is awake, alert, obeys commands, Oriented to person, place, time, situation. Cardiovascular: Patient's skin is warm and dry. Respiratory: Airway is patent. GI: Bowel sounds present X 4 quads. Abd is soft and non tender X 4 quads. : No signs and/or symptoms were reported regarding the genitourinary system. EENT: No signs and/or symptoms were reported regarding the EENT system. Derm: Skin is intact. Musculoskeletal: No signs and/or symptoms reported regarding the musculoskeletal system. Vital Signs: 21:11 BP 145 / 98; Pulse 88; Resp 20 S; Temp 97.1(TE); Pulse Ox 95% on R/A; Weight 99.79 kg jd3 (R); Height 5 ft. 9 in. (175.26 cm) (R); Pain 9/10; 23:36 BP 138 / 94; Pulse 84; Resp 18; Pulse Ox 96% on R/A; rv 21:11 Body Mass Index 32.49 (99.79 kg, 175.26 cm) jd3 ED Course: 20:47 Patient arrived in ED. mr 21:10 Triage completed. jd3 21:11 Arm band placed on. jd3 21:13 Norbert Lozano MD is Attending Physician. gs 21:19 Jose Andujar, DANI is Primary Nurse. rv 21:27 Radiology exam delayed due to lab results not completed at this time. (BUN/Creatinine) vm2 IV insertion attempt and/or patient not having appropriate IV at this time. 21:44 Patient has correct armband on for positive identification. Bed in low position. Call rv light in reach. Side rails up X 1. Pulse ox on. NIBP on. 21:47 Radiology exam delayed due to lab results not completed at this time. (BUN/Creatinine). nj 21:57 Radiology exam delayed due to lab results not completed at this time. (BUN/Creatinine). vm2 22:14 Inserted saline lock: 20 gauge in right antecubital area, using aseptic technique. rv Blood collected. 22:34 CT Abd/Pelvis - IV Contrast Only In Process Unspecified. EDMS 23:39 No provider procedures requiring assistance completed. IV discontinued, intact, rv bleeding controlled, No redness/swelling at site. Pressure dressing applied. Administered Medications: 21:38 Drug: TORadol - Ketorolac 15 mg Route: IVP; Site: right antecubital; rv 23:39 Follow up: Response: Pain is unchanged, physician notified rv Outcome: 23:13 Discharge ordered by MD. gs 23:39 Discharged to home ambulatory, with family. rv 23:39 Condition: unchanged 23:39 Discharge instructions given to patient, Instructed on discharge instructions, follow up and referral plans. Demonstrated understanding of instructions, follow-up care. 23:40 Patient left the ED. rv Signatures: Dispatcher [employer] EDCA Dona Brunner, Magali Lopez 2 Norbert Lozano MD MD gs Davies, Jonathon, RN RN jd3 Jose Andujar RN RN rv
--- NOTE | 2019-02-21 23:14 | EDPHYS ---
Physician Documentation [facility] Name: Rubén Tan Age: 53 yrs Sex: Male : 1965 Arrival Date: 02/21/2019 Time: 20:47 Bed 26 Private MD: ED Physician Norbert Lozano HPI: 02/21 23:10 This 53 yrs old Male presents to ER via Ambulatory with complaints of Back gs Pain. 23:10 The symptoms are located in the , left flank, states ran into pipe 2 weeks ago gs persistent pain left side. Onset: The symptoms/episode began/occurred acutely, 2 week(s) ago, and became persistent. Associated signs and symptoms: Pertinent negatives: chest pain, hematuria. Severity of symptoms: At their worst the symptoms were moderate, in the emergency department the symptoms are unchanged. The patient has experienced a previous episode. Historical: - Allergies: 21:11 Dilaudid; jd3 21:11 Morphine; jd3 - Home Meds: 21:11 None [Active]; jd3 - PMHx: 21:11 chronic back pain; Degenerative disc disease; Migraines; jd3 - PSHx: 21:11 shoulder surgery; back surgery; right; jd3 - Immunization history:: Adult Immunizations up to date. - Social history:: Smoking status: Patient uses tobacco products, smokes one pack cigarettes per day. - Ebola Screening: : Patient negative for fever greater than or equal to 101.5 degrees Fahrenheit, and additional compatible Ebola Virus Disease symptoms. ROS: 23:10 All other systems are negative. gs Exam: 23:10 Head/Face: Normocephalic, atraumatic. Eyes: Pupils equal round and reactive to light, gs extra-ocular motions intact. Lids and lashes normal. Conjunctiva and sclera are non-icteric and not injected. Cornea within normal limits. Periorbital areas with no swelling, redness, or edema. ENT: Nares patent. No nasal discharge, no septal abnormalities noted. Tympanic membranes are normal and external auditory canals are clear. Oropharynx with no redness, swelling, or masses, exudates, or evidence of obstruction, uvula midline. Mucous membranes moist. Neck: Trachea midline, no thyromegaly or masses palpated, and no cervical lymphadenopathy. Supple, full range of motion without nuchal rigidity, or vertebral point tenderness. No Meningismus. Chest/axilla: Normal chest wall appearance and motion. Nontender with no deformity. No lesions are appreciated. Cardiovascular: Regular rate and rhythm with a normal S1 and S2. No gallops, murmurs, or rubs. Normal PMI, no JVD. No pulse deficits. Respiratory: Lungs have equal breath sounds bilaterally, clear to auscultation and percussion. No rales, rhonchi or wheezes noted. No increased work of breathing, no retractions or nasal flaring. Abdomen/GI: Soft, non-tender, with normal bowel sounds. No distension or tympany. No guarding or rebound. No evidence of tenderness throughout. Skin: Warm, dry with normal turgor. Normal color with no rashes, no lesions, and no evidence of cellulitis. MS/ Extremity: Pulses equal, no cyanosis. Neurovascular intact. Full, normal range of motion. Neuro: Awake and alert, GCS 15, oriented to person, place, time, and situation. Cranial nerves II-XII grossly intact. Motor strength 5/5 in all extremities. Sensory grossly intact. Cerebellar exam normal. Normal gait. 23:10 Constitutional: The patient appears alert, awake. 23:10 Back: pain, that is moderate, CVA tenderness, that is moderate, is noted on the left. Vital Signs: 21:11 BP 145 / 98; Pulse 88; Resp 20 S; Temp 97.1(TE); Pulse Ox 95% on R/A; Weight 99.79 kg jd3 (R); Height 5 ft. 9 in. (175.26 cm) (R); Pain 9/10; 23:36 BP 138 / 94; Pulse 84; Resp 18; Pulse Ox 96% on R/A; rv 21:11 Body Mass Index 32.49 (99.79 kg, 175.26 cm) jd3 MDM: 21:23 Patient medically screened. 23:10 Differential diagnosis: chronic back pain, contusion, internal injury. Data reviewed: vital signs, nurses notes, lab test result(s), radiologic studies. Response to treatment: the patient's symptoms have mildly improved after treatment, and as a result, I will discharge patient. 02/21 21:24 Order name: CBC with Diff; Complete Time: 23:10 02/21 21:24 Order name: Basic Metabolic Panel; Complete Time: 23:10 gs 02/21 21:24 Order name: CT Abd/Pelvis - IV Contrast Only gs Administered Medications: 21:38 Drug: TORadol - Ketorolac 15 mg Route: IVP; Site: right antecubital; rv 23:39 Follow up: Response: Pain is unchanged, physician notified rv Disposition: 02/21/19 23:13 Discharged to Home. Impression: Contusion of abdominal wall. - Condition is Stable. - Discharge Instructions: Contusion. - Medication Reconciliation Form, Thank You Letter, Antibiotic Education, Prescription Opioid Use form. - Follow up: Private Physician; When: 2 - 3 days; Reason: Re-evaluation by your physician. Signatures: Dispatcher [employer] EDNorbert Purvis MD MD gs Davies, Jonathon RN RN Jose Boudreaux RN RN rv Corrections: (The following items were deleted from the chart) 23:11 23:10 This 53 yrs old Male presents to ER via Ambulatory with complaints of gs Abdominal Pain, Back Pain, Fever. gs 23:40 23:13 02/21/2019 23:13 Discharged to Home. Impression: Contusion of abdominal wall. rv Condition is Stable. Forms are Medication Reconciliation Form, Thank You Letter, Antibiotic Education, Prescription Opioid Use. Follow up: Private Physician; When: 2 - 3 days; Reason: Re-evaluation by your physician. gs
--- NOTE | 2019-02-22 10:03 | RAD REPORT ---
EXAM DESCRIPTION: CT Abdomen and Pelvis With Contrast: CLINICAL HISTORY: ABD PAIN. Chronic back pain. Trauma. COMPARISON: None. TECHNIQUE: Contiguous axial sections are obtained through the abdomen and pelvis as per protocol aft er administration of iodinated contrast. Oral contrast was not administered. . Sagittal and coronal r eformations were obtained. Automatic exposure control (AEC), mA and/or kV adjustment by patient size, and/or iterative reconst ructive technique was used, per departmental dose optimization program, during the performance of the CT examination. FINDINGS: The nutrition tech view demonstrates no abnormalities . The visualized lung bases demonstrates no abnormalities. The liver is normal in size and demonstrates normal attenuation and enhancement. The spleen, pancre as, adrenal glands appear normal in size and attenuation without any focal abnormalities. The gallbla dder is normal . Kidneys demonstrate no evidence of calculi. Kidneys are normal in size, shape, attenuation and enhanc ement. The aorta, IVC and retroperitoneal structures appear normal . The stomach is distended and fluid-filled. The small bowel loops appear unremarkable. The appendix is normal . The colon is unremarkable. No evidence of free intraperitoneal fluid or air is noted. CT examination of the pelvis demonstrates no evidence of mass or adenopathy. The urinary bladder appe ars normal. The Reproductive organs are unremarkable. Inguinal regions are unremarkable. Facet arthropathy is seen in the lower lumbar spine. IMPRESSION: Normal CT examination of the abdomen and pelvis with contrast. Electronically signed by: Tiana Braun MD 02/21/2019 10:45 PM CDT Due to temporary technical issues with the PACS/Fluency reporting system, reports are being signed by the in house radiologist as a courtesy to ensure prompt reporting. The interpreting radiologist is f ully responsible for the content of the report.
== END 2019-02-21 23:40 | disposition home or self-care (01) ==
LOC: ER 20:46
DX: S30.1XXA Contusion of abdominal wall, initial encounter (principal); Z88.5 Allergy status to narcotic agent; F17.210 Nicotine dependence, cigarettes, uncomplicated
CPT/HCPCS: 36415; 74177; 80048; 85025; 96374; 99284; Q9967

== ENCOUNTER 2019-08-22 09:32 | Emergency (ER) | payer SELFPAY ==
[2019-08-22] MEDS ORDERED: FENTANYL CITR 100 MCG/2 ML ONE (11:31)
[2019-08-22] MEDS ORDERED: KETOROLAC 30 MG/ML INJ ONE (11:31)
[2019-08-22] MEDS ORDERED: ONDANSETRON 4 MG/2 ML VIAL ONE (11:32)
[2019-08-22 11:41] LABS: Urine Blood NEGATIVE (NEG); Urine Glucose NEGATIVE (NEG); Urine Protein NEGATIVE (NEG); Urine pH 6.5 (5.0-7.0)
[2019-08-22 11:50] LABS: Basophils % 1.2 % (0-1.3); Hematocrit 45.9 % (39.6-49.0); Lymphocytes % 33.4 % (15.3-44.8); MPV 8.7 fL (7.6-11.3); RBC Red Blood Cell Count 5.08 M/uL (4.33-5.43)
[2019-08-22 12:05] LABS: Protime INR 0.9
[2019-08-22 12:07] LABS: ALT/SGPT 41 U/L (12-78); AST/SGOT 23 U/L (15-37); Albumin 3.6 g/dL (3.4-5.0); Alkaline Phosphatase 83 U/L (45-117); BUN Blood Urea Nitrogen 15 mg/dL (7-18); Bicarbonate 29 mmol/L (21-32); Bilirubin Direct < 0.1 mg/dL (0-0.2); Bilirubin Total 0.4 mg/dL (0.2-1.0); Glucose Level 98 mg/dL (74-106); Lipase 91 U/L (73-393); Magnesium 2.3 mg/dL (1.8-2.4); NT PRO-BNP 29 pg/mL (<125); Potassium 4.6 mmol/L (3.5-5.1); Protein, Total 7.1 g/dL (6.4-8.2); Sodium Level 140 mmol/L (136-145); Troponin (Emerg Dept Use Only) < 0.02 ng/mL (0.0-0.045)
--- NOTE | 2019-08-22 12:08 | RAD REPORT ---
EXAM DESCRIPTION: RAD - Chest Single View - 08/22/2019 11:48 am CLINICAL HISTORY: COUGH Chest pain. COMPARISON: Chest Single View dated 11/30/2018; Chest Single View dated 12/20/2017; Chest Pa And Lat ( 2 Views) dated 10/27/2017; Chest Single View dated 11/30/2016; Abdomen Pelvis W Contrast dated 019 FINDINGS: Portable technique limits examination quality. The lungs are grossly clear. The heart is normal in size. No displaced fractures. IMPRESSION: No acute intrathoracic process suspected.
--- NOTE | 2019-08-22 12:27 | EKG ---
Test Date: 2019-08-22 Test Time: 11:28:26 Ticketing Clerk: NAN MEASUREMENT RESULTS: Intervals: Rate: 66 RI: 156 QRSD: 106 QT: 410 QTc: 429 [place]: P: 66 RI: 156 QRS: 68 T: 61 INTERPRETIVE STATEMENTS: Normal sinus rhythm Normal ECG Compared to ECG 11/30/2018 19:30:03 No significant changes Electronically Signed On 08-22-19 12:27:04 INDUSTRIAL LOCOMOTIVE OPERATOR by Cam Daniels
--- NOTE | 2019-08-22 12:39 | RAD REPORT ---
EXAM DESCRIPTION: CT - Angio Aorta For Dissection - 08/22/2019 12:28 pm CLINICAL HISTORY: Chest pain radiating to the back. CHEST PAIN COMPARISON: No comparisons TECHNIQUE: CT angiography of the aorta was performed with MIPs. All CT scans are performed using dose optimization technique as appropriate and may include automated exposure control or mA/KV adjustment according to patient size. FINDINGS: A left aortic arch is present with normal branching pattern of the great vessels.No acute aortic finding is seen such as aneurysm, penetrating ulcer or dissection. The celiac axis, SMA, KATALINA and renal arteries are patent. No evidence of pulmonary embolism. Mild diffuse COPD is present. The liver demonstrates no focal mass or biliary dilatation.The spleen, pancreas, adrenal glands and k idneys are within normal limits for arterial phase imaging. No bowel obstruction, free fluid or abscess.Colonic diverticulosis without diverticulitis.No patholog ic enlarged lymphadenopathy identified. No fracture or worrisome bone lesion seen. IMPRESSION: No acute aortic finding is demonstrated. Mild COPD.
--- NOTE | 2019-08-22 13:21 | ER ---
Nurse's Notes [facility] Name: Rubén Tan Age: 54 yrs Sex: Male : 1965 Arrival Date: 08/22/2019 Time: 09:33 Bed 5 Private MD: Diagnosis: Strain of muscle and tendon of back wall of thorax;Strain of muscle and tendon of front wall of thorax;Tobacco abuse counseling;Tobacco use Presentation: 08/22 10:06 Presenting complaint: Patient states: L lateral chest wall pain that radiates towards ss LUQ x 1.5 months. Pt states, "I thought I just pulled a muscle, but it hasn't gone away.". Transition of care: patient was not received from another setting of care. Onset of symptoms is unknown. Risk Assessment: Do you want to hurt yourself or someone else? Patient reports no desire to harm self or others. Initial Sepsis Screen: Does the patient meet any 2 criteria? No. Patient's initial sepsis screen is negative. Does the patient have a suspected source of infection? No. Patient's initial sepsis screen is negative. Care prior to arrival: None. 10:06 Method Of Arrival: Ambulatory ss 10:06 Acuity: CARINE 3 ss Historical: - Allergies: 10:07 Dilaudid; ss 10:07 Morphine; ss - PMHx: 10:07 chronic back pain; Degenerative disc disease; Migraines; ss - PSHx: 10:07 shoulder surgery; back surgery; right; ss - Immunization history:: Adult Immunizations up to date. - Coronavirus screen:: The patient has NOT traveled to [place], [place], or [place] in the past 14 days. Proceed with normal triage process as indicated. - Social history:: Smoking status: Patient reports the use of cigarette tobacco products, smokes one pack cigarettes per day. - Ebola Screening: : Patient denies exposure to infectious person Patient denies travel to an Ebola-affected area in the 21 days before illness onset. Screenin:00 Abuse screen: Denies threats or abuse. Denies injuries from another. Nutritional sg screening: No deficits noted. Tuberculosis screening: No symptoms or risk factors identified. Never had TB. Fall Risk None identified. Assessment: 11:00 General: Appears in no apparent distress. well groomed, well developed, well nourished, sg Behavior is calm, cooperative, appropriate for age. Pain: Complains of pain in posterior aspect of left lateral abdomen and anterior aspect of left lateral abdomen and mid back area Quality of pain is described as aching. Neuro: Level of Consciousness is awake, alert, obeys commands, Oriented to person, place, time. Cardiovascular: Patient's skin is warm and dry. Chest pain is denied. Respiratory: Airway is patent Respiratory effort is even, unlabored, Respiratory pattern is regular, symmetrical. GI: Abdomen is round non-distended, Bowel sounds present X 4 quads. Reports tolerance of fluids, tolerance of food. : Reports pain in left flank(s). EENT: No signs and/or symptoms were reported regarding the EENT system. Derm: Skin is pink, warm \\T\\ dry. Musculoskeletal: Circulation, motion, and sensation intact. Range of motion: intact in all extremities. 13:10 Reassessment: Patient appears in no apparent distress at this time. Patient and/or sg family updated on plan of care and expected duration. Pain level reassessed. Patient is alert, oriented x 3, equal unlabored respirations, skin warm/dry/pink. at bedside updating on pt resorts and plans to dc pt to home. Vital Signs: 10:07 BP 124 / 84; Pulse 70; Resp 16; Temp 97.6; Pulse Ox 98% on R/A; Weight 99.79 kg; Height ss 5 ft. 9 in. (175.26 cm); Pain 8/10; 13:30 BP 122 / 70; Pulse 72; Resp 17; Pulse Ox 100% on R/A; sg 10:07 Body Mass Index 32.49 (99.79 kg, 175.26 cm) ED Course: 09:33 Patient arrived in ED. rg4 10:04 Ronnie Reinoso MD is Attending Physician. ps1 10:06 Triage completed. ss 10:07 Arm band placed on right wrist. ss 10:59 Taqueria Louis, DANI is Primary Nurse. sg 11:12 Uvaldo Clemons MD is Attending Physician. [facility] 11:40 Urine Dipstick--Ancillary (enter results) Sent. 5 11:40 Urine Culture Sent. 5 11:40 Lipase Sent. 5 11:40 Basic Metabolic Panel Sent. 5 11:40 CBC with Diff Sent. 5 11:40 LFT's Sent. mh5 11:40 Magnesium Sent. [facility] 11:41 Patient has correct armband on for positive identification. Bed in low position. Call [facility] light in reach. Side rails up X2. conveyor monitor on. Pulse ox on. NIBP on. 11:41 NT PRO-BNP Sent. 5 11:41 PT-INR Sent. [facility] 11:41 Troponin (emerg Dept Use Only) Sent. [facility] 11:42 Initial lab(s) drawn, by il, sent to lab. Inserted saline lock: 20 gauge in left [facility] antecubital area, using aseptic technique. Blood collected. 12:34 Patient moved back from [place]. sg 13:30 No provider procedures requiring assistance completed. IV discontinued, intact, sg bleeding controlled, No redness/swelling at site. Pressure dressing applied. 13:35 Roberto Carlos Khan MD is Referral Physician. [facility] Administered Medications: 11:37 Drug: TORadol 30 mg Route: IVP; Site: left antecubital; sg 12:30 Follow up: Response: No adverse reaction; Pain is decreased sg 11:38 Drug: Zofran 4 mg Route: IVP; Site: left antecubital; sg 12:00 Follow up: Response: No adverse reaction; Nausea is decreased sg 11:40 Drug: fentaNYL (PF) 25 mcg Route: IVP; Site: left antecubital; sg 12:35 Follow up: Response: No adverse reaction; Pain is unchanged, physician notified; RASS: sg Restless (+1) 12:35 Drug: fentaNYL (PF) 25 mcg {Note: RASS of +1.} Route: IVP; Site: left antecubital; sg Outcome: 13:18 Discharge ordered by . [facility] 13:30 Discharged to home ambulatory. sg 13:30 Condition: good 13:30 Discharge instructions given to patient, Instructed on discharge instructions, follow up and referral plans. no drinking with medication, no driving heavy equipment, medication usage, benefits of quitting smoking, safety practices, Demonstrated understanding of instructions, follow-up care, medications, Prescriptions given X 4. 13:32 Patient left the ED. 13:37 Patient left the ED. Signatures: Taqueria Louis RN RN sg Anderson, Corey, MD MD cha Smirch, Shelby, RN RN Juanita Walsh 4 Rhea Hayes 5 Reinoso, Ronnie, MD MD ps1
--- NOTE | 2019-08-22 13:22 | EDPHYS ---
Physician Documentation [facility] Name: Rubén Tan Age: 54 yrs Sex: Male : 1965 Arrival Date: 08/22/2019 Time: 09:33 Bed 5 Private MD: ED Physician Uvaldo Clemons HPI: 08/22 11:18 This 54 yrs old Male presents to ER via Ambulatory with complaints of Flank estee Pain. 11:18 The patient complains of pain in the left scapular area, left subscapular area and mid estee back area. The pain does not radiate. Onset: The symptoms/episode began/occurred 1 month(s) ago. Modifying factors: The symptoms are alleviated by nothing. the symptoms are aggravated by movement. Associated signs and symptoms: The patient has no apparent associated signs or symptoms. Severity of pain: At its worst the pain was moderate in the emergency department the pain is unchanged. The patient has not experienced similar symptoms in the past. Historical: - Allergies: 10:07 Dilaudid; ss 10:07 Morphine; ss - PMHx: 10:07 chronic back pain; Degenerative disc disease; Migraines; ss - PSHx: 10:07 shoulder surgery; back surgery; right; ss - Immunization history:: Adult Immunizations up to date. - Coronavirus screen:: The patient has NOT traveled to [place], [place], or [place] in the past 14 days. Proceed with normal triage process as indicated. - Social history:: Smoking status: Patient reports the use of cigarette tobacco products, smokes one pack cigarettes per day. - Ebola Screening: : Patient denies exposure to infectious person Patient denies travel to an Ebola-affected area in the 21 days before illness onset. ROS: 11:19 Constitutional: Negative for fever, chills, and weight loss, Eyes: Negative for injury, estee pain, redness, and discharge, ENT: Negative for injury, pain, and discharge, Neck: Negative for injury, pain, and swelling, Respiratory: Negative for shortness of breath, cough, wheezing, and pleuritic chest pain, Back: Negative for injury and pain, : Negative for injury, bleeding, discharge, and swelling, MS/Extremity: Negative for injury and deformity, Skin: Negative for injury, rash, and discoloration, Neuro: Negative for headache, weakness, numbness, tingling, and seizure, Psych: Negative for depression, anxiety, suicide ideation, homicidal ideation, and hallucinations, Allergy/Immunology: Negative for hives, rash, and allergies, Endocrine: Negative for neck swelling, polydipsia, polyuria, polyphagia, and marked weight changes, Hematologic/Lymphatic: Negative for swollen nodes, abnormal bleeding, and unusual bruising. 11:19 Cardiovascular: Positive for chest pain. 11:19 Abdomen/GI: Positive for abdominal pain, of the anterior aspect of left lateral abdomen and posterior aspect of left lateral abdomen. Exam: 11:19 Constitutional: This is a well developed, well nourished patient who is awake, alert, estee and in no acute distress. Head/Face: Normocephalic, atraumatic. Eyes: Pupils equal round and reactive to light, extra-ocular motions intact. Lids and lashes normal. Conjunctiva and sclera are non-icteric and not injected. Cornea within normal limits. Periorbital areas with no swelling, redness, or edema. ENT: Nares patent. No nasal discharge, no septal abnormalities noted. Tympanic membranes are normal and external auditory canals are clear. Oropharynx with no redness, swelling, or masses, exudates, or evidence of obstruction, uvula midline. Mucous membranes moist. Neck: Trachea midline, no thyromegaly or masses palpated, and no cervical lymphadenopathy. Supple, full range of motion without nuchal rigidity, or vertebral point tenderness. No Meningismus. Cardiovascular: Regular rate and rhythm with a normal S1 and S2. No gallops, murmurs, or rubs. Normal PMI, no JVD. No pulse deficits. Respiratory: Lungs have equal breath sounds bilaterally, clear to auscultation and percussion. No rales, rhonchi or wheezes noted. No increased work of breathing, no retractions or nasal flaring. Abdomen/GI: Soft, non-tender, with normal bowel sounds. No distension or tympany. No guarding or rebound. No evidence of tenderness throughout. Back: No spinal tenderness. No costovertebral tenderness. Full range of motion. Male : Normal genitalia with no discharge or lesions. Skin: Warm, dry with normal turgor. Normal color with no rashes, no lesions, and no evidence of cellulitis. MS/ Extremity: Pulses equal, no cyanosis. Neurovascular intact. Full, normal range of motion. Neuro: Awake and alert, GCS 15, oriented to person, place, time, and situation. Cranial nerves II-XII grossly intact. Motor strength 5/5 in all extremities. Sensory grossly intact. Cerebellar exam normal. Normal gait. Psych: Awake, alert, with orientation to person, place and time. Behavior, mood, and affect are within normal limits. 11:19 Chest/axilla: Inspection: normal, Palpation: tenderness, that is mild, that is moderate, of the left lateral anterior chest and left lateral posterior chest, Axilla: are normal, no abscess, no cellulitis, no mass, no palpable nodes, no rash, lymphadenopathy, is not appreciated, Lymph nodes: lymphadenopathy is not appreciated. Vital Signs: 10:07 BP 124 / 84; Pulse 70; Resp 16; Temp 97.6; Pulse Ox 98% on R/A; Weight 99.79 kg; Height ss 5 ft. 9 in. (175.26 cm); Pain 8/10; 13:30 BP 122 / 70; Pulse 72; Resp 17; Pulse Ox 100% on R/A; sg 10:07 Body Mass Index 32.49 (99.79 kg, 175.26 cm) ss MDM: 11:12 Patient medically screened. [facility] 13:11 Data reviewed: vital signs, nurses notes, lab test result(s), EKG, radiologic studies, [facility] CT scan, plain films. 08/22 11:18 Order name: Basic Metabolic Panel [facility] 08/22 11:18 Order name: CBC with Diff [facility] 08/22 11:18 Order name: LFT's [facility] 08/22 11:18 Order name: Magnesium [facility] 08/22 11:18 Order name: NT PRO-BNP [facility] 08/22 11:18 Order name: PT-INR [facility] 08/22 11:18 Order name: Troponin (emerg Dept Use Only) [facility] 08/22 11:18 Order name: Lipase [facility] 08/22 11:18 Order name: Urine Culture [facility] 08/22 11:29 Order name: Urine Dipstick--Ancillary (enter results) 08/22 11:42 Order name: Urine Dipstick-Ancillary; Complete Time: 12:23 [facility] 08/22 11:52 Order name: CBC with Automated Diff; Complete Time: 12:23 [facility] 08/22 12:06 Order name: Protime (+INR); Complete Time: 12:23 [facility] 08/22 12:08 Order name: Basic Metabolic Panel; Complete Time: 12:23 [facility] 08/22 11:18 Order name: XRAY Chest (1 view) [facility] 08/22 11:18 Order name: EKG; Complete Time: 11:[address] [facility] 08/22 11:18 Order name: Cardiac monitoring; Complete Time: 11:[address] [facility] 08/22 11:18 Order name: EKG - Nurse/Tech; Complete Time: 13:[address] [facility] 08/22 11:18 Order name: CT Aorta for Dissection [facility] 08/22 12:08 Order name: Liver (Hepatic) Function; Complete Time: 12:23 [facility] 08/22 12:08 Order name: Troponin (Emerg Dept Use Only); Complete Time: 12:23 [facility] 08/22 12:08 Order name: NT PRO-BNP; Complete Time: 12:23 [facility] 08/22 12:08 Order name: Magnesium; Complete Time: 12:23 [facility] 08/22 12:08 Order name: Lipase; Complete Time: 12:23 [facility] 08/22 12:09 Order name: RAD; Complete Time: 12:23 [facility] 08/22 12:48 Order name: CT; Complete Time: 13:10 [facility] 08/22 11:18 Order name: IV Saline Lock; Complete Time: 11:[address] [facility] 08/22 11:18 Order name: Labs collected and sent; Complete Time: 11:[address] [facility] 08/22 11:18 Order name: O2 Per Protocol; Complete Time: 13:[address] [facility] 08/22 11:18 Order name: O2 Sat Monitoring; Complete Time: 13:[address] [facility] 08/22 11:18 Order name: Urine Dipstick-Ancillary (obtain specimen); Complete Time: 11:[address] [facility] Administered Medications: 11:37 Drug: TORadol 30 mg Route: IVP; Site: left antecubital; sg 12:30 Follow up: Response: No adverse reaction; Pain is decreased sg 11:38 Drug: Zofran 4 mg Route: IVP; Site: left antecubital; sg 12:00 Follow up: Response: No adverse reaction; Nausea is decreased sg 11:40 Drug: fentaNYL (PF) 25 mcg Route: IVP; Site: left antecubital; sg 12:35 Follow up: Response: No adverse reaction; Pain is unchanged, physician notified; RASS: sg Restless (+1) 12:35 Drug: fentaNYL (PF) 25 mcg {Note: RASS of +1.} Route: IVP; Site: left antecubital; sg Disposition: 08/22/19 13:18 Discharged to Home. Impression: Strain of muscle and tendon of back wall of thorax, Strain of muscle and tendon of front wall of thorax, Tobacco abuse counseling, Tobacco use. - Condition is Stable. - Discharge Instructions: Back Pain, Adult, Steps to Quit Smoking, Smoking Hazards, Back Pain, Adult, [id number]. - Prescriptions for Ibuprofen 600 mg Oral Tablet - take 1 tablet by ORAL route every 6 hours As needed take with food; 30 tablet. Cyclobenzaprine 5 mg Oral Tablet - take 1 tablet by ORAL route 3 times per day As needed; 15 tablet. Tramadol 50 mg Oral Tablet - take 2 tablet by ORAL route every 8 hours as needed; 30 tablet. - Work release form, Medication Reconciliation Form, Thank You Letter, Antibiotic Education, Prescription Opioid Use form. - Follow up: Private Physician; When: 2 - 3 days; Reason: Recheck today's complaints, Continuance of care, Re-evaluation by your physician. Follow up: Roberto Carlos Khan MD; When: 2 - 3 days; Reason: Recheck today's complaints, Re-evaluation by your physician. - Problem is new. - Symptoms have improved. Signatures: Dispatcher [employer] EDTaqueria Pitts RN RN Uvaldo Lake MD MD cha Smirch, Shelby, RN RN ss Corrections: (The following items were deleted from the chart) 13:32 13:18 08/22/2019 13:18 Discharged to Home. Impression: Strain of muscle and tendon of ss back wall of thorax; Strain of muscle and tendon of front wall of thorax. Condition is Stable. Forms are Medication Reconciliation Form, Thank You Letter, Antibiotic Education, Prescription Opioid Use. Follow up: Private Physician; When: 2 - 3 days; Reason: Recheck today's complaints, Continuance of care, Re-evaluation by your physician. Problem is new. Symptoms have improved. [facility] 13:35 13:32 08/22/2019 13:18 Discharged to Home. Impression: Strain of muscle and tendon of estee back wall of thorax; Strain of muscle and tendon of front wall of thorax. Condition is Stable. Discharge Instructions: Back Pain, Adult, Back Pain, Adult, [id number]. Prescriptions for Ibuprofen 600 mg Oral Tablet - take 1 tablet by ORAL route every 6 hours As needed take with food; 30 tablet, Tylenol-Codeine #3 300-30 mg Oral Tablet - take 2 tablets by ORAL route every 6 hours As needed; 24 tablet, Cyclobenzaprine 5 mg Oral Tablet - take 1 tablet by ORAL route 3 times per day As needed; 15 tablet. and Forms are Medication Reconciliation Form, Thank You Letter, Antibiotic Education, Prescription Opioid Use, Work release form. Follow up: Private Physician; When: 2 - 3 days; Reason: Recheck today's complaints, Continuance of care, Re-evaluation by your physician. Problem is new. Symptoms have improved. ss 13:35 13:35 08/22/2019 13:18 Discharged to Home. Impression: Strain of muscle and tendon of estee back wall of thorax; Strain of muscle and tendon of front wall of thorax; Tobacco abuse counseling; Tobacco use. Condition is Stable. Discharge Instructions: Back Pain, Adult, Back Pain, Adult, [id number]. Prescriptions for Ibuprofen 600 mg Oral Tablet - take 1 tablet by ORAL route every 6 hours As needed take with food; 30 tablet, Tylenol-Codeine #3 300-30 mg Oral Tablet - take 2 tablets by ORAL route every 6 hours As needed; 24 tablet, Cyclobenzaprine 5 mg Oral Tablet - take 1 tablet by ORAL route 3 times per day As needed; 15 tablet. and Forms are Medication Reconciliation Form, Thank You Letter, Antibiotic Education, Prescription Opioid Use, Work release form. Follow up: Private Physician; When: 2 - 3 days; Reason: Recheck today's complaints, Continuance of care, Re-evaluation by your physician. Problem is new. Symptoms have improved. [facility] 13:37 13:35 08/22/2019 13:18 Discharged to Home. Impression: Strain of muscle and tendon of ss back wall of thorax; Strain of muscle and tendon of front wall of thorax; Tobacco abuse counseling; Tobacco use. Condition is Stable. Discharge Instructions: Back Pain, Adult, Back Pain, Adult, [id number]. Prescriptions for Ibuprofen 600 mg Oral Tablet - take 1 tablet by ORAL route every 6 hours As needed take with food; 30 tablet, Tylenol-Codeine #3 300-30 mg Oral Tablet - take 2 tablets by ORAL route every 6 hours As needed; 24 tablet, Cyclobenzaprine 5 mg Oral Tablet - take 1 tablet by ORAL route 3 times per day As needed; 15 tablet. and Forms are Medication Reconciliation Form, Thank You Letter, Antibiotic Education, Prescription Opioid Use, Work release form. Follow up: Private Physician; When: 2 - 3 days; Reason: Recheck today's complaints, Continuance of care, Re-evaluation by your physician. Follow up: Roberto Carlos Khan; When: 2 - 3 days; Reason: Recheck today's complaints, Re-evaluation by your physician. Problem is new. Symptoms have improved. estee
[2019-08-24 06:21] VITALS: BP 124/84; TEMP 97.6; O2SAT 98
== END 2019-08-22 13:37 | disposition home or self-care (01) ==
LOC: ER 09:32
DX: S29.012A Strain of muscle and tendon of back wall of thorax, initial encounter (principal); S29.011A Strain of muscle and tendon of front wall of thorax, initial encounter; Z71.6 Tobacco abuse counseling; Z72.0 Tobacco use; Z88.5 Allergy status to narcotic agent
CPT/HCPCS: 36415; 71045; 71275; 74175; 80048; 80076; 81003; 83690; 83735; 83880; 84484; 85025; 85610; 87086; 87088; 93005; 96374; 96375; 99285; J2405; J3010; Q9967

== ENCOUNTER 2020-09-16 18:52 | Emergency (ER) | payer SELFPAY ==
[2020-09-17 00:50] LABS: SARS-COV-2 RT PCR NEGATIVE (NEGATIVE)
--- NOTE | 2020-09-17 01:00 | ER ---
Nurse's Notes [facility] Name: Rubén Tan Age: 55 yrs Sex: Male : 1965 Arrival Date: 09/16/2020 Time: 18:55 Bed 16 Private MD: Diagnosis: Acute bronchitis Presentation: 09/16 19:03 Chief complaint: Patient states: Cough, congestion, SOB, wheezing, fever for 3 days. ll1 Coronavirus screen: Client denies travel out of the [place] in the last 14 days. chills, congestion, cough unrelated to allergies, difficulty breathing, fatigue, fever, headache, muscle pain, runny nose, shaking with chills, shortness of breath, Client presents with at least one sign or symptom that may indicate coronavirus-19. Standard/surgical mask placed on the client. Ebola Screen: Patient denies travel to an Ebola-affected area in the 21 days before illness onset. Resp Distress? Mild respiratory distress is noted. Initial Sepsis Screen: Does the patient meet any 2 criteria? No. Patient's initial sepsis screen is negative. Does the patient have a suspected source of infection? Yes: Productive cough/pneumonia. Risk Assessment: Do you want to hurt yourself or someone else? Patient reports no desire to harm self or others. Onset of symptoms was September 12, 2020. 19:03 Method Of Arrival: Wheelchair ll1 19:03 Acuity: CARINE 3 ll1 Historical: - Allergies: 19:06 Dilaudid; ll1 19:06 Morphine; ll1 - PMHx: 19:06 chronic back pain; Degenerative disc disease; Migraines; ll1 - PSHx: 19:06 shoulder surgery; back surgery; right; ll1 - Immunization history:: Flu vaccine is not up to date. - Social history:: Smoking status: Patient reports the use of cigarette tobacco products, smokes one pack cigarettes per day. Screenin:48 Abuse screen: Denies threats or abuse. Nutritional screening: No deficits noted. jb4 Tuberculosis screening: No symptoms or risk factors identified. Fall Risk None identified. Assessment: 21:48 General: Appears in no apparent distress. uncomfortable, Behavior is calm, cooperative, jb4 appropriate for age. Pain: Complains of pain in headache Pain does not radiate. Pain currently is 10 out of 10 on a pain scale. Neuro: Level of Consciousness is awake, alert, obeys commands, Oriented to person, place, time, situation. Cardiovascular: Patient's skin is warm and dry. Respiratory: Airway is patent Respiratory effort is even, unlabored, Respiratory pattern is regular, symmetrical, Breath sounds are clear bilaterally. GI: No signs and/or symptoms were reported involving the gastrointestinal system. : No signs and/or symptoms were reported regarding the genitourinary system. EENT: No signs and/or symptoms were reported regarding the EENT system. Derm: Skin is intact, Skin is pink, warm \T\ dry. Musculoskeletal: Circulation, motion, and sensation intact. Range of motion: intact in all extremities. 22:45 Reassessment: Patient appears in no apparent distress at this time. Patient and/or jb4 family updated on plan of care and expected duration. Pain level reassessed. Patient is alert, oriented x 3, equal unlabored respirations, skin warm/dry/pink. 09/17 00:00 Reassessment: Patient appears in no apparent distress at this time. Patient and/or jb4 family updated on plan of care and expected duration. Pain level reassessed. Patient is alert, oriented x 3, equal unlabored respirations, skin warm/dry/pink. 01:00 Reassessment: Patient appears in no apparent distress at this time. Patient and/or jb4 family updated on plan of care and expected duration. Pain level reassessed. Patient is alert, oriented x 3, equal unlabored respirations, skin warm/dry/pink. Vital Signs: 09/16 19:03 BP 110 / 66; Pulse 86; Resp 18; Temp 97.8; Pulse Ox 98% ; Weight 99.79 kg; Height 5 ft. ll1 9 in. (175.26 cm); Pain 10/10; 22:23 BP 104 / 70; Pulse 66; Resp 16; Pulse Ox 97% on R/A; jb4 09/17 00:00 BP 124 / 82; Pulse 72; Resp 16; Pulse Ox 98% on R/A; jb4 01:00 BP 117 / 82; Pulse 86; Resp 15; Pulse Ox 98% on R/A; jb4 09/16 19:03 Body Mass Index 32.49 (99.79 kg, 175.26 cm) ll1 ED Course: 03/08 18:55 Patient arrived in ED. mr 19:05 Triage completed. ll1 19:06 Arm band placed on. ll1 21:44 Yogesh Hobson, RN is Primary Nurse. jb4 21:45 Tramaine Mayberry PA is PHCP. jr8 21:45 Uvaldo Clemons MD is Attending Physician. jr8 21:48 Patient has correct armband on for positive identification. Bed in low position. Call jb4 light in reach. Side rails up X 1. Pulse ox on. NIBP on. 22:30 XRAY Chest (1 view) In Process Unspecified. [facility]OK 09/17 01:00 No provider procedures requiring assistance completed. Patient did not have IV access jb4 during this emergency room visit. Administered Medications: No medications were administered Outcome: 00:59 Discharge ordered by . jr8 01:30 Discharged to home ambulatory. jb4 01:30 Condition: stable 01:30 Discharge instructions given to patient, Instructed on discharge instructions, follow up and referral plans. medication usage, Demonstrated understanding of instructions, follow-up care, medications, Prescriptions given X 3. 01:36 Patient left the ED. jb4 Signatures: Dispatcher [employer] [facility] Dona Brunner Tramaine Mayberry PA PA jr8 Yogesh Hobson, RN RN jb4 Donya Rangel, DANI RN ll1 Corrections: (The following items were deleted from the chart) 07:37 03/08 22:48 Abuse screen: Denies threats or abuse. jb4 Lonny 09/17 07:37 08 22:48 Nutritional screening: No deficits noted. jb4 [facility] 09/17 07:37 09/16 22:48 Tuberculosis screening: No symptoms or risk factors identified. jb4 4 09/17 07:37 [id number] 22:48 Fall Risk None identified. jb4 jb4
--- NOTE | 2020-09-17 01:00 | EDPHYS ---
Physician Documentation [facility] Name: Rubén Tan Age: 55 yrs Sex: Male : 1965 Arrival Date: 09/16/2020 Time: 18:55 Bed 16 Private MD: ED Physician Uvaldo Clemons HPI: 09/16 23:16 This 55 yrs old Male presents to ER via Wheelchair with complaints of Cough, jr8 Congestion, Breathing Difficulty, Fever. 23:16 The patient or guardian reports cough, that is intermittent, described as mild, with no jr8 sputum, difficulty breathing. Onset: The symptoms/episode began/occurred gradually, 2 day(s) ago. Severity of symptoms: At their worst the symptoms were mild, in the emergency department the symptoms are unchanged. Modifying factors: The symptoms are alleviated by nothing, the symptoms are aggravated by nothing. Associated signs and symptoms: Pertinent positives: fever, headache, sinus congestion. The patient has not experienced similar symptoms in the past. The patient has not recently seen a physician. Historical: - Allergies: 19:06 Dilaudid; ll1 19:06 Morphine; ll1 - PMHx: 19:06 chronic back pain; Degenerative disc disease; Migraines; ll1 - PSHx: 19:06 shoulder surgery; back surgery; right; ll1 - Immunization history:: Flu vaccine is not up to date. - Social history:: Smoking status: Patient reports the use of cigarette tobacco products, smokes one pack cigarettes per day. ROS: 23:16 Eyes: Negative for injury, pain, redness, and discharge, Neck: Negative for injury, jr8 pain, and swelling, Cardiovascular: Negative for chest pain, palpitations, and edema, Abdomen/GI: Negative for abdominal pain. Positive for nausea and diarrhea Back: Negative for injury and pain, MS/Extremity: Negative for injury and deformity, Skin: Negative for injury, rash, and discoloration. 23:16 ENT: Positive for sinus congestion. 23:16 Respiratory: Positive for cough, shortness of breath. Exam: 23:16 Eyes: Pupils equal round and reactive to light, extra-ocular motions intact. Lids and jr8 lashes normal. Conjunctiva and sclera are non-icteric and not injected. Cornea within normal limits. Periorbital areas with no swelling, redness, or edema. ENT: Nares patent. No nasal discharge, no septal abnormalities noted. Tympanic membranes are normal and external auditory canals are clear. Oropharynx with no redness, swelling, or masses, exudates, or evidence of obstruction, uvula midline. Mucous membranes moist. Neck: Trachea midline, no thyromegaly or masses palpated, and no cervical lymphadenopathy. Supple, full range of motion without nuchal rigidity, or vertebral point tenderness. No Meningismus. Cardiovascular: Regular rate and rhythm with a normal S1 and S2. No gallops, murmurs, or rubs. Normal PMI, no JVD. No pulse deficits. Respiratory: Lungs have equal breath sounds bilaterally, clear to auscultation and percussion. No rales, rhonchi or wheezes noted. No increased work of breathing, no retractions or nasal flaring. Abdomen/GI: Soft, non-tender, with normal bowel sounds. No distension or tympany. No guarding or rebound. No evidence of tenderness throughout. Back: No spinal tenderness. No costovertebral tenderness. Full range of motion. Skin: Warm, dry with normal turgor. Normal color with no rashes, no lesions, and no evidence of cellulitis. MS/ Extremity: Pulses equal, no cyanosis. Neurovascular intact. Full, normal range of motion. Neuro: Awake and alert, GCS 15, oriented to person, place, time, and situation. Cranial nerves II-XII grossly intact. Motor strength 5/5 in all extremities. Sensory grossly intact. Cerebellar exam normal. Normal gait. Vital Signs: 19:03 BP 110 / 66; Pulse 86; Resp 18; Temp 97.8; Pulse Ox 98% ; Weight 99.79 kg; Height 5 ft. ll1 9 in. (175.26 cm); Pain 10/10; 22:23 BP 104 / 70; Pulse 66; Resp 16; Pulse Ox 97% on R/A; jb4 09/17 00:00 BP 124 / 82; Pulse 72; Resp 16; Pulse Ox 98% on R/A; jb4 01:00 BP 117 / 82; Pulse 86; Resp 15; Pulse Ox 98% on R/A; jb4 09/16 19:03 Body Mass Index 32.49 (99.79 kg, 175.26 cm) ll1 MDM: 09/16 21:45 Patient medically screened. jr8 09/17 00:58 Data reviewed: vital signs, nurses notes, lab test result(s), radiologic studies, plain jr8 films. Data interpreted: Pulse oximetry: on room air is 97 %. Interpretation: normal. Counseling: I had a detailed discussion with the patient and/or guardian regarding: the historical points, exam findings, and any diagnostic results supporting the discharge/admit diagnosis, lab results, radiology results, the need for outpatient follow up, a family practitioner, to return to the emergency department if symptoms worsen or persist or if there are any questions or concerns that arise at home. 09/16 21:49 Order name: XRAY Chest (1 view) jr8 09/17 00:51 Order name: COVID-19/FLU A+B; Complete Time: 00:58 EDMS Administered Medications: No medications were administered Disposition: 06:46 Co-signature as Attending Physician, Uvaldo Clemons MD I agree with the assessment and estee plan of care. Disposition: 09/17/20 00:59 Discharged to Home. Impression: Acute bronchitis. - Condition is Stable. - Discharge Instructions: Acute Bronchitis, Adult. - Prescriptions for Prednisone 20 mg Oral Tablet - take 1 tablet by ORAL route once daily for 5 days; 5 tablet. Tessalon Perles 100 mg Oral Capsule - take 1 capsule by ORAL route every 8 hours As needed; 15 capsule. Zithromax Z- Cas 250 mg Oral Tablet - take 1 tablet by ORAL route as directed for 5 days Day 1 - take two (2) tablets one time. Day 2, 3, 4 , 5 take one (1) tablet once daily.; 6 tablet. - Medication Reconciliation Form, Thank You Letter, Antibiotic Education, Prescription Opioid Use form. - Follow up: Private Physician; When: 2 - 3 days; Reason: Recheck today's complaints, Continuance of care, Re-evaluation by your physician. - Problem is new. - Symptoms have improved. Signatures: Dispatcher [employer] Uvaldo Tim MD MD cha Roszak, Josh, PA PA jr8 Yogesh Hobson, RN RN jb4 Donya Rangel RN RN ll1 Corrections: (The following items were deleted from the chart) 09/16 23:44 22:01 Influenza Screen (A \T\ B)+BA.LAB.BRZ ordered. [facility] 23:45 22:01 CORONAVIRUS+MR.LAB.BRZ ordered. [facility] EDMS 09/17 01:36 00:59 09/17/2020 00:59 Discharged to Home. Impression: Acute bronchitis. Condition is jb4 Stable. Forms are Medication Reconciliation Form, Thank You Letter, Antibiotic Education, Prescription Opioid Use. Follow up: Private Physician; When: 2 - 3 days; Reason: Recheck today's complaints, Continuance of care, Re-evaluation by your physician. Problem is new. Symptoms have improved. jr8
[2020-09-17 02:10] VITALS: TEMP 97.8
[2020-09-17 02:11] VITALS: BP 104/70; O2SAT 97
--- NOTE | 2020-09-17 07:47 | RAD REPORT ---
EXAM DESCRIPTION: Anthony Single View09/16/2020 10:30 pm CLINICAL HISTORY: Cough COMPARISON: 2019 FINDINGS: The lungs appear clear of acute infiltrate. The heart is normal size IMPRESSION: No acute abnormalities displayed
== END 2020-09-17 01:36 | disposition home or self-care (01) ==
LOC: ER 18:52
DX: J20.9 Acute bronchitis, unspecified (principal); Z20.822 Contact with and (suspected) exposure to COVID-19; F17.210 Nicotine dependence, cigarettes, uncomplicated; Z88.5 Allergy status to narcotic agent; Z88.6 Allergy status to analgesic agent
CPT/HCPCS: 0240U; 71045; 99283

== ENCOUNTER 2023-02-08 09:21 | Emergency (ER) | payer SELFPAY ==
--- OUTSIDE RECORDS SUMMARY | 2023-02-08 09:25 | XMS REPORT | Continuity of Care Document ---
:1965 Author Organization [facility] t Address [address] [facility] [address] [place] [id number] Care Team Providers Name Role Phone No , Pcp Primary Care Physician Unavailable GLORIA FRANKEL Attending Clinician Unavailable MARIO CH Attending Clinician Unavailable VINAY GORDON Attending Clinician Unavailable Tri Mata Attending Clinician CURT PLATT Attending Clinician Unavailable Varghese Jesus Attending Clinician Problems Condition Condition Condition Status Onset Resolution Last Treating Co mments Source Name Details Category Date Date Treatment Clinician Date Closed Closed Disease Active [facility] bimalleola bimalleola 12-04 He alth r fracture r fracture 00:00: of left of left 00 ankle ankle Allergies, Adverse Reactions, Alerts Allergy Allergy Status Severity Reaction(s) Onset Inactive Treating Comm ents Source Name Type Date Date Clinician Sulfa Propensi Active Other Palmar [facility] Antibiot ty to 01-05 and Health ics adverse 00:00: plantar reaction 00 epidermal s ysis Morphine Allergy Active Anaphylac [facility] to 12-08 tic Health substanc 00:00: reaction e 00 Hydromor Allergy Active [facility] phone to 12-08 Health substanc 00:00: e 00 Social History Social Habit Start Date Stop Date Quantity Comments Source History of tobacco Cigarette Smoker [facility] use Alcohol intake 2023-01-05 2023-01-05 Ex-drinker [facility] 00:00:00 00:00:00 (finding) Tobacco use and 2022-12-31 2022-12-31 Smokeless tobacco [facility] exposure 00:00:00 00:00:00 non-user Exposure to 2022-12-082022-12-18 Not sure [facility] SARS-CoV-2 (event) 00:00:00 08:17:00 Sex [birth year] [facility] 00:00:00 00:00:00 Smoking Status Start Date Stop Date Source Tobacco smoking consumption unknown [facility] Occasional tobacco smoker 2022-12-31 00:00:00 [facility] Medications Ordered Filled Start Stop Current Ordering Indication Dosage Frequency Signature Comments Components Source Medication Medication Date Date Medication? Clinician (SIG) Name Name clindamycin 2022- Yes 300mg Q.25D Take 1 U T (Cleocin) 01-05 capsule Health 300 MG 00:00: 04:59 (300 mg capsule 00 :00 total) by mouth in the morning and 1 capsule (300 mg total) at noon and 1 capsule (300 mg total) in the evening and 1 capsule (300 mg total) before bedtime. Do all this for 7 days. gabapentin 2022- Yes [id number] 300mg Q.[id number] Take 1 [facility] (Neurontin) 12-18 303502 [id number] capsule Health 300 MG 00:00: 04:59 3D (300 mg capsule 00 :00 total) by mouth in the morning and 1 capsule (300 mg total) at noon and 1 capsule (300 mg total) in the evening. gabapentin 2022- Yes [id number] 300mg Q.[id number] Take 1 [facility] (Neurontin) 12-18 [id number] capsule Health 300 MG 00:00: 04:59 3D (300 mg capsule 00 :00 total) by mouth in the morning and 1 capsule (300 mg total) at noon and 1 capsule (300 mg total) in the evening. gabapentin 2022- Yes [id number] 300mg Q.[id number] Take 1 [facility] (Neurontin) 12-18 179663 [id number] capsule Health 300 MG 00:00: 04:59 3D (300 mg capsule 00 :00 total) by mouth in the morning and 1 capsule (300 mg total) at noon and 1 capsule (300 mg total) in the evening. sulfamethox 2022- Yes [id number] 1{tbl} Q.5D Take 1 UT azole-trime 5-30 -10 [id number] tablet by Health thoprim 00:00: 04:59 mouth in (Bactrim 00 :00 the DS) 800-160 morning MG tablet and 1 tablet in the evening. Do all this for 10 days. sulfamethox 2022-0 3- Yes [id number] 1{tbl} Q.5D Take 1 UT azole-trime 5-30 - [id number] tablet by Health thoprim 00:00: 04:59 mouth in (Bactrim 00 :00 the DS) 800-160 morning MG tablet and 1 tablet in the evening. Do all this for 10 days. sulfamethox 2022-0 2022- Yes [id number] 1{tbl} Q.5D Take 1 UT azole-trime 5-30 - [id number] tablet by Health thoprim 00:00: 04:59 mouth in (Bactrim 00 :00 the DS) 800-160 morning MG tablet and 1 tablet in the evening. Do all this for 10 days. warfarin 2022-0 Yes 6mg Take 6 mg UT (Coumadin) 5-23 by mouth. Heal th 6 MG tablet 00:00: EVERY DAY 00 AT 5 PM nicotine 2022-0 Yes 1{patch Place 1 UT (Nicoderm 5-23 } patch on Health CQ) 14 00:00: the skin. MG/24HR 00 patch gabapentin 2022-0 Yes 100mg QD Take 100 [facility] (Neurontin) 5-23 mg by Health 100 MG 00:00: mouth 1 capsule 00 (one) time each day. Acetaminoph 2022-0 Yes 500mg Take 500 U T en Extra 5-23 mg by Health Strength 00:00: mouth. 500 MG 00 tablet Lidocaine 2022-0 Yes APPLY 1 [facility] Pain Relief 5-23 PATCH Health 4 % patch 00:00: TOPICALLY 00 TO THE SKIN EVERY 24 HOURS FOR 14 DAYS warfarin 3-0 Yes 6mg Take 6 mg UT (Coumadin) 5-23 by mouth. Heal th 6 MG tablet 00:00: EVERY DAY 00 AT 5 PM nicotine 3-0 Yes 1{patch Place 1 UT (Nicoderm 5-23 } patch on Health CQ) 14 00:00: the skin. MG/24HR 00 patch gabapentin 3-0 Yes 100mg QD Take 100 [facility] (Neurontin) 5-23 mg by Health 100 MG 00:00: mouth 1 capsule 00 (one) time each day. Acetaminoph 3-0 Yes 500mg Take 500 U T en Extra 5-23 mg by Health Strength 00:00: mouth. 500 MG 00 tablet Lidocaine 3-0 Yes APPLY 1 [facility] Pain Relief 5-23 PATCH Health 4 % patch 00:00: TOPICALLY 00 TO THE SKIN EVERY 24 HOURS FOR 14 DAYS warfarin 2023-0 Yes 6mg Take 6 mg UT (Coumadin) 5-23 by mouth. Heal th 6 MG tablet 00:00: EVERY DAY 00 AT 5 PM nicotine 3-0 Yes 1{patch Place 1 UT (Nicoderm 5-23 } patch on Health CQ) 14 00:00: the skin. MG/24HR 00 patch gabapentin 3-0 Yes 100mg QD Take 100 [facility] (Neurontin) 5-23 mg by Health 100 MG 00:00: mouth 1 capsule 00 (one) time each day. Acetaminoph 3-0 Yes 500mg Take 500 U T en Extra 5-23 mg by Health Strength 00:00: mouth. 500 MG 00 tablet Lidocaine 2022-0 Yes APPLY 1 [facility] Pain Relief 5-23 PATCH Health 4 % patch 00:00: TOPICALLY 00 TO THE SKIN EVERY 24 HOURS FOR 14 DAYS warfarin 3-0 Yes 6mg Take 6 mg UT (Coumadin) 5-23 by mouth. Heal th 6 MG tablet 00:00: EVERY DAY 00 AT 5 PM nicotine 3-0 Yes 1{patch Place 1 UT (Nicoderm 5-23 } patch on Health CQ) 14 00:00: the skin. MG/24HR 00 patch gabapentin 3-0 Yes 100mg QD Take 100 [facility] (Neurontin) 5-23 mg by Health 100 MG 00:00: mouth 1 capsule 00 (one) time each day. Acetaminoph 3-0 Yes 500mg Take 500 U T en Extra 5-23 mg by Health Strength 00:00: mouth. 500 MG 00 tablet Lidocaine 3-0 Yes APPLY 1 [facility] Pain Relief 5-23 PATCH Health 4 % patch 00:00: TOPICALLY 00 TO THE SKIN EVERY 24 HOURS FOR 14 DAYS Vital Signs Vital Name Observation Time Observation Value Comments Source Systolic blood pressure 2022-12-31 15:32:00 106 mm[Hg] [facility] Diastolic blood pressure 2022-12-31 15:32:00 76 mm[Hg] [facility] Heart rate 2022-12-31 15:32:00 95 /min [facility] Body temperature 2022-12-31 15:32:00 35.83 Ignacia [facility] Body height 2022-12-31 15:32:00 182.9 cm [facility] weight 2022-12-31 15:32:00 86.183 [facility] BMI 2022-12-31 15:32:00 25.77 kg/m2 [facility] Systolic blood pressure 2022-12-09 13:01:00 113 mm[Hg] [facility] Diastolic blood pressure 2022-12-09 13:01:00 74 mm[Hg] [facility] Heart rate 2022-12-09 13:01:00 89 /min [facility] Body height 2022-12-09 13:01:00 182.9 cm [facility] Body weight 2022-12-09 13:01:00 95.255 [facility] BMI 2022-12-09 13:01:00 28.48 kg/m2 [facility] Procedures This patient has no known procedures. Encounters Start End Encounter Admission Attending Care Care Encounter Source Date/Time Date/Time Type Type Clinicians Facility Department ID 2023-02-05 Outpatient [facility] [id number] [facility] 15:04:48 [id number] [facility] 2023-02-04 Outpatient [facility] [id number] [facility] 14:07:54 [id number] [facility] 2022-12-23 Outpatient [facility] [id number] [facility] 13:17:42 [id number] [facility] 2022-12-22 Outpatient [facility] [id number] UT 15:30:21 [id number] [facility] 2022-12-10 Outpatient [facility] [id number] UT 16:45:32 [id number] [facility] 2022-12-09 Outpatient [facility] [id number] UT 07:29:28 [id number] [facility] 2022-12-08 Outpatient [facility] [id number] UT 08:35:16 [id number] [facility] 2022-12-02 Outpatient [facility] [id number] UT 09:13:30 [id number] [facility] 2022-11-30 Outpatient [facility] [id number] UT 16:06:47 [id number] [facility] 2022-11-23 Outpatient [facility] [id number] UT 09:59:30 [id number] [facility] 2022-11-19 Outpatient [facility] [id number] UT 11:19:12 [id number] [facility] 2022-11-03 Outpatient [facility] [id number] UT 12:18:20 [id number] [facility] 2023-03-03 2023-03-03 Outpatient TERRY [facility] [id number] UT 10:45:00 10:45:00 [facility] 2023-02-09 2023-02-09 Outpatient MARIO CH [facility] [id number] UT 09:15:00 09:15:00 Health 2023-02-09 2023-02-09 Outpatient [facility] [id number] UT 09:15:00 09:15:00 [facility] 2023-01-05 2023-01-05 Outpatient HEIDI [facility] [id number] UT 12:40:00 12:30:28 [facility] 2023-01-05 2023-01-05 Office Nicol, [facility] 6414 [id number] UT 09:15:00 09:22:[address] [id number] Health [id number] 2023-01-05 2023-01-05 Outpatient [facility] [id number] UT 09:15:00 09:22:08 [facility] 2022-12-31 2022-12-31 Office GIULIA [facility] 6400 [id number] UT 11:45:00 11:45:[address] [id number] Health [id number] 2022-12-18 2022-12-18 Office Varghese, [facility] 6414 [id number] UT 09:15:00 09:15:[address] [id number] Health [id number] 2022-12-17 2022-12-17 Outpatient [facility] [id number] UT 11:45:00 11:45:00 Health 2022-12-09 2022-12-09 Office Terry AVIVA 6400 [id number] UT 08:15:00 10:22:[address] [id number] Health [id number] 2022-12-08 2022-12-08 Office Mario Ch [facility] [id number] UT 09:15:00 09:15:[address] [id number] Health [id number] 2022-12-08 2022-12-08 Outpatient [facility] [id number] UT 09:15:00 09:12:10 Health 2022-11-01 2022-11-01 Outpatient MARIO CH [facility] [id number] UT 10:00:00 10:00:00 Health Results This patient has no known results.
[2023-02-08] MEDS ORDERED: dexAMETHasone 10 MG/ML VIAL ONE (09:52)
[2023-02-08] MEDS ORDERED: CYCLOBENZAPRINE 10 MG TAB ONE (09:52)
--- NOTE | 2023-02-08 10:11 | RAD REPORT ---
EXAM DESCRIPTION: RAD - Shoulder Right 2 View - 02/08/2023 10:04 am CLINICAL HISTORY: Right shoulder pain FINDINGS: No fracture or dislocation is seen. Mild chronic widening AC joint 18 millimeter exostosis extends off of the mid to distal right clavicle inferiorly.
--- NOTE | 2023-02-08 10:40 | EDPHYS ---
Physician Documentation [facility] Name: Rubén Tan Age: 57 yrs Sex: Male : 1965 Arrival Date: 02/08/2023 Time: : Bed 8 Private MD: ED Physician Ted Gutierrez HPI: 02/08 09:44 This 57 yrs old Male presents to ER via Wheelchair with complaints of Numbness Of Arm. kb 09:44 The patient or guardian complains of injury, pain, tenderness, weakness. The complaints kb affect the posterior aspect of right shoulder. Context: The problem was sustained at home, outdoors, resulted from lifting or pulling. Onset: The symptoms/episode began/occurred 1 week(s) ago. Treatment prior to arrival includes: no previous treatment. Modifying factors: The symptoms are alleviated by nothing. the symptoms are aggravated by movement. Associated signs and symptoms: Pertinent positives: numbness, pain, tingling, weakness. Severity of symptoms: At their worst the symptoms were moderate, in the emergency department the symptoms are unchanged. The patient has not experienced similar symptoms in the past. The patient has not recently seen a physician. Pt reports he injured his right shoulder one week ago while trying to pull start his weed eater. States he has had weakness, tingling and numbness down right arm since then and it isn't getting better. . Historical: - Allergies: 09:41 Dilaudid; iw 09:41 Morphine; iw 09:52 Sulfa (Sulfonamide Antibiotics); ap3 - Home Meds: 09:53 Warfarin Oral [Active]; gabapentin oral [Active]; ap3 - PMHx: 09:41 chronic back pain; Degenerative disc disease; Migraines; iw - Social history:: Smoking status: unknown. ROS: 09:42 Constitutional: Negative for fever, chills, and weight loss. kb 09:42 MS/extremity: Positive for pain, tingling, of the posterior aspect of right shoulder, numbness. 09:42 All other systems are negative. Exam: 09:42 Constitutional: This is a well developed, well nourished patient who is awake, alert, kb and in no acute distress. Head/Face: Normocephalic, atraumatic. ENT: Moist Mucous membranes Cardiovascular: Regular rate and rhythm with a normal S1 and S2. No gallops, murmurs, or rubs. No pulse deficits. Respiratory: Respirations even and unlabored. No increased work of breathing. Talking in full sentences Skin: Warm, dry with normal turgor. Normal color. Neuro: Awake and alert, GCS 15, oriented to person, place, time, and situation. Moves all extremities. Normal gait. 09:42 Musculoskeletal/extremity: Extremities: grossly normal except: noted in the posterior aspect of right shoulder: pain, tenderness, ROM: intact in all extremities, Circulation is intact in all extremities. Sensation intact. 09:42 Neuro: Motor: strength is 4/5 in the right arm. Vital Signs: 09:51 BP 123 / 97; Pulse 71; Resp 18; Pulse Ox 95% on R/A; ap3 MDM: 09:30 Patient medically screened. kb 09:44 Differential diagnosis: dislocation, strain, fracture. Data reviewed: vital signs, kb nurses notes. 10:38 Counseling: I had a detailed discussion with the patient and/or guardian regarding: the kb historical points, exam findings, and any diagnostic results supporting the discharge/admit diagnosis, radiology results, the need for outpatient follow up, a family practitioner, to return to the emergency department if symptoms worsen or persist or if there are any questions or concerns that arise at home. 02/08 09:30 Order name: Shoulder Right (2 View) XRAY; Complete Time: 10:12 kb Administered Medications: 09:51 Drug: Dexamethasone IM 10 mg Route: IM; Site: right deltoid; ap3 10:44 Follow up: Response: No adverse reaction; Pain is decreased ap3 09:51 Drug: Cyclobenzaprine PO 10 mg Route: PO; ap3 10:44 Follow up: Response: (VIS) Vaccine information sheet provided today. Questions and/or ap3 concerns addressed. VIS edition date: Feb 14, 2021.; Pain is decreased 10:50 Drug: traMADol PO 50 mg Route: PO; ap3 Disposition: 11:13 Co-signature as Attending Physician, Ted Gutierrez MD I reviewed the patient's care rt provided by the Advanced Practice Provider and agree with the diagnosis and treatment plan. Disposition Summary: 02/08/23 10:39 Discharge Ordered Location: Home kb Condition: Stable kb Diagnosis - Radiculopathy, cervical region kb - Pain in right shoulder kb Followup: kb - With: Emergency Department - When: As needed - Reason: Worsening of condition Followup: kb - With: Private Physician - When: 2 - 3 days - Reason: Recheck today's complaints, Continuance of care, Re-evaluation by your physician Discharge Instructions: - Discharge Summary Sheet kb - Pinched Nerve kb - Shoulder Pain, [id number] kb Forms: - Medication Reconciliation Form kb - Thank You Letter kb - Antibiotic Education kb - Prescription Opioid Use kb - Patient Portal Instructions kb Prescriptions: - Prednisone 20 mg Oral Tablet - take 1 tablet by ORAL route once daily for 5 days; 5 tablet; Refills: 0, kb Product Selection Permitted - Tramadol 50 mg Oral Tablet - take 1 tablet by ORAL route every 8 hours as needed; 12 tablet; Refills: 0, kb Product Selection Permitted - orphenadrine citrate 100 mg Oral Tablet Sustained Release - take 1 tablet by ORAL route 2 times per day As needed; 20 tablet; Refills: 0, kb Product Selection Permitted Signatures: Dispatcher [employer] Katy Contreras, BURNER HAND-C BURNER HAND-Laurie Olea, RN Julita Higgins RN RN ap3 Ted Gutierrez MD MD rt
--- NOTE | 2023-02-08 10:40 | ER ---
Nurse's Notes [facility] Name: Rubén Tan Age: 57 yrs Sex: Male : 1965 Arrival Date: 02/08/2023 Time: 09:21 Bed 8 Private MD: Diagnosis: Radiculopathy, cervical region;Pain in right shoulder Presentation: 02/08 09:40 Chief complaint: Patient states: messed up my right shoulder a week ago, now my hand iw and elbow is numb. Coronavirus screen: At this time, the client does not indicate any symptoms associated with coronavirus-19. Ebola Screen: Patient negative for fever greater than or equal to 101.5 degrees Fahrenheit, and additional compatible Ebola Virus Disease symptoms Patient denies exposure to infectious person. Patient denies travel to an Ebola-affected area in the 21 days before illness onset. No symptoms or risks identified at this time. Initial Sepsis Screen: Does the patient meet any 2 criteria? No. Patient's initial sepsis screen is negative. Does the patient have a suspected source of infection? No. Patient's initial sepsis screen is negative. Risk Assessment: Do you want to hurt yourself or someone else? Patient reports no desire to harm self or others. Onset of symptoms was February 02, 2023. 09:40 Method Of Arrival: Wheelchair iw 09:40 Acuity: CARINE 4 iw Historical: - Allergies: 09:41 Dilaudid; iw 09:41 Morphine; iw 09:52 Sulfa (Sulfonamide Antibiotics); ap3 - Home Meds: 09:53 Warfarin Oral [Active]; gabapentin oral [Active]; ap3 - PMHx: 09:41 chronic back pain; Degenerative disc disease; Migraines; iw - Social history:: Smoking status: unknown. Screenin:52 [facility] ED Fall Risk Assessment (Adult) History of falling in the last 3 months, ap3 including since admission No falls in past 3 months (0 pts) Confusion or Disorientation No (0 pts) Intoxicated or Sedated No (0 pts) Impaired Gait Yes (1 pt) Mobility Assist Device Used No (0 pt) Altered Elimination No (0 pt). Abuse screen: Denies threats or abuse. Nutritional screening: No deficits noted. Tuberculosis screening: No symptoms or risk factors identified. Assessment: 09:51 General: Appears uncomfortable, Behavior is calm, cooperative, appropriate for age. ap3 Pain: Complains of pain in right arm and posterior aspect of right shoulder Pain began gradually. Neuro: Level of Consciousness is awake, alert, obeys commands, Oriented to person, place, time, situation. Cardiovascular: Patient's skin is warm and dry. Respiratory: Airway is patent Respiratory effort is even, unlabored, Respiratory pattern is regular, symmetrical. Vital Signs: 09:51 BP 123 / 97; Pulse 71; Resp 18; Pulse Ox 95% on R/A; ap3 ED Course: 09:24 Patient arrived in ED. am2 09:30 Katy Marrufo FNP-C is PHCP. kb 09:30 Ted Gutierrez MD is Attending Physician. kb 09:39 Julita Dalton, DANI is Primary Nurse. ap3 09:41 Triage completed. iw 09:52 Arm band placed on left wrist. ap3 09:52 Patient has correct armband on for positive identification. Bed in low position. Call ap3 light in reach. Adult w/ patient. Pulse ox on. NIBP on. 09:54 xray at bedside. ap3 09:54 Provided Education on: medications prior to administration. ap3 10:06 Shoulder Right (2 View) XRAY In Process Unspecified. EDMS 10:50 No provider procedures requiring assistance completed. Patient did not have IV access ap3 during this emergency room visit. Administered Medications: 09:51 Drug: Dexamethasone IM 10 mg Route: IM; Site: right deltoid; ap3 10:44 Follow up: Response: No adverse reaction; Pain is decreased ap3 09:51 Drug: Cyclobenzaprine PO 10 mg Route: PO; ap3 10:44 Follow up: Response: (VIS) Vaccine information sheet provided today. Questions and/or ap3 concerns addressed. VIS edition date: Feb 14, 2021.; Pain is decreased 10:50 Drug: traMADol PO 50 mg Route: PO; ap3 Medication: 09:52 VIS not applicable for this client. ap3 Outcome: 10:39 Discharge ordered by . kb 10:50 Discharged to home via wheelchair, with family. ap3 10:50 Condition: good 10:50 Discharge instructions given to patient, family, Instructed on discharge instructions, follow up and referral plans. medication usage, Demonstrated understanding of instructions, follow-up care, medications, Prescriptions given X 3. 10:51 Patient left the ED. ap3 Signatures: Dispatcher [employer] EDMS Katy Marrufo, ISABELLAC RENUKA-Laurie Olea, RN Julita Cabrera am2 Julita Dalton RN RN ap3
[2023-02-08 10:56] VITALS: BP 123/97; O2SAT 95
[2023-02-08] MEDS ORDERED: TRAMADOL HCL 50 MG TAB ONE (10:56)
== END 2023-02-08 10:51 | disposition home or self-care (01) ==
LOC: ER 09:21
DX: M54.12 Radiculopathy, cervical region (principal)
CPT/HCPCS: 96372; 99284; J1100